=== PATIENT | female | born 1940 | race Caucasian/White ===

== ENCOUNTER 2017-07-08 15:31 | Inpatient (IN) | payer MEDICARE ==
[2017-07-07] MEDS: CHLORHEXIDINE 0.12% (ORAL KIT) 15 ML CUP MT SCH (22:00)
[2017-07-08] VITALS (24 sets, daily range): BP systolic 70–146; BP diastolic 49–92; PULSE 94–132; RESP 15–37; TEMP 96.8; O2SAT 90–100
[~2017-07-08] VITALS: Ht 167.6 cm; Wt 62.4 kg
[2017-07-08] MEDS ORDERED: DILTIAZEM HCL 25 MG/5 ML VIAL IV ONE ×2 (15:45)
[2017-07-08] MEDS ORDERED: SODIUM CHLORIDE 0.9% FLUSH 10 ML FLUSH IV FLUSH PRN (15:45)
[2017-07-08 15:58] LABS: AUTOMATED NEUTROPHIL # 5.6 TH/MM3 (1.8-7.7); BASOPHIL # 0.3 TH/MM3 (0-0.2); EOSINOPHIL % 0.1 % (0.0-4.0); HEMATOCRIT 33.3 % (35.0-46.0); HEMOGLOBIN 10.4 GM/DL (11.6-15.3); LYMPH % 8.3 % (9.0-44.0); LYMPHOCYTE # 0.6 TH/MM3 (1.0-4.8); MEAN CELL VOLUME 100.8 FL (80.0-100.0); MEAN CORPUSCULAR HEMOGLOBIN 31.5 PG (27.0-34.0); MEAN CORPUSCULAR HGB CONC 31.3 % (32.0-36.0); MONO % 1.3 % (0.0-8.0); MONOCYTE # 0.1 TH/MM3 (0-0.9); NEUT % 86.3 % (16.0-70.0); PLATELET COUNT 606 TH/MM3 (150-450); RED BLOOD COUNT 3.31 MIL/MM3 (4.00-5.30); RED CELL DISTRIBUTION WIDTH 19.3 % (11.6-17.2); WHITE BLOOD COUNT 6.6 TH/MM3 (4.0-11.0)
[2017-07-08] MEDS ORDERED: SODIUM CHLOR 0.9% 1000 ML INJ 1,000 ML IV ONE ×4 (16:08→22:15)
[2017-07-08 16:14] LABS: INTERNATIONAL NORMALIZED RATIO 1.1 RATIO; PROTHROMBIN TIME - PATIENT 11.4 SEC (9.8-11.6)
--- NOTE | 2017-07-08 16:16 | RADRPT ---
EXAM DATE/TIME: 07/08/2017 15:55 [facility] COMPARISON: No previous studies available for comparison. INDICATIONS : Short of breath. Syncopal episode. MEDICAL HISTORY : None. SURGICAL HISTORY : None. ENCOUNTER: Initial ACUITY: 1 day PAIN SCORE: Non-responsive. LOCATION: Bilateral chest FINDINGS: Portable AP view of the chest demonstrates a normal-sized cardiac silhouette. Left chest wall Infuse- a-Port is present with distal tip in the superior vena cava. EKG lines overlie the patient. There is a small left pleural based opacity. Densities overlie the left inferior hemithorax and may represent surgical clips. No pneumothorax is identified. There is mild apical pleural thickening at the right l cassy apex. Possible 15 mm nodule is present in the right midlung zone. No pneumothorax is visualized. The bones demonstrate no acute abnormality. CONCLUSION: 1. Small left pleural effusion with associated atelectasis and/or consolidation at the left lung base . 2. Suspected 15 mm mid lung nodule. These findings will be further evaluated on the currently ordered chest CT. Chance Renner MD on July 08, 2017 at 16:08 Board Certified Radiologist. This report was verified electronically.
[2017-07-08] MEDS ORDERED: ROCURONIUM INJ 50 MG/5 ML VIAL ONE (16:24)
[2017-07-08] MEDS ORDERED: POTASSIUM PHOSPHATE INJ 30 MMOL in SODIUM CHLOR 0.9% 250 ML INJ 250 ML IV PRN (16:30)
[2017-07-08] MEDS ORDERED: POTASSIUM PHOSPHATE MONOBASIC 500 MG TAB PO/TUBE PRN (16:30)
[2017-07-08] MEDS ORDERED: POTASSIUM CHLOR 40 MEQ PREMIX 100 ML IV PRN ×2 (16:30)
[2017-07-08] MEDS ORDERED: ROCURONIUM INJ 50 MG/5 ML VIAL IV ONE (16:30)
[2017-07-08] MEDS ORDERED: MAGNESIUM OXIDE 400 MG TAB PO PRN (16:30)
[2017-07-08] MEDS ORDERED: SODIUM PHOSPHATE INJ 30 MMOL in SODIUM CHLOR 0.9% 250 ML INJ 240 ML IV PRN (16:30)
[2017-07-08] MEDS ORDERED: MAGNESIUM SULFATE INJ 4 GM in SODIUM CHLORIDE 0.9% INJ 92 ML IV PRN (16:30)
[2017-07-08] MEDS ORDERED: POTASSIUM PHOSPHATE MONOBASIC 500 MG TAB PO PRN (16:30)
[2017-07-08] MEDS ORDERED: MAGNESIUM SULFATE INJ 2 GM in SODIUM CHLORIDE 0.9% INJ 96 ML IV PRN (16:30)
[2017-07-08] MEDS ORDERED: DEXTROSE 50% IN WATER 50 ML VIAL(D50) IV PUSH PRN (16:30)
[2017-07-08] MEDS ORDERED: PROPOFOL 1000 MG/100 ML INJ 100 ML IV PRN (16:30)
[2017-07-08] MEDS ORDERED: LABETALOL HCL 100 MG/20 ML VIAL IV PUSH PRN (16:30)
[2017-07-08] MEDS ORDERED: hydrALAZINE HCL 20 MG/ML VIAL IV PUSH PRN (16:30)
[2017-07-08] MEDS ORDERED: MIDAZOLAM HCL 5 MG/5 ML VIAL IV PUSH ONE (16:30)
[2017-07-08] MEDS ORDERED: RESP: ALBUTEROL 2.5 MG/IPRATROPIUM 0.5 MG NEB (PRN) INH (16:30)
[2017-07-08] MEDS ORDERED: POTASSIUM CHLOR 20 MEQ PREMIX 100 ML IV PRN ×2 (16:30)
[2017-07-08] MEDS ORDERED: POTASSIUM CHLORIDE 25 MEQ EFFERVESCENT TAB PO PRN (16:30)
[2017-07-08] MEDS ORDERED: ZOFR8TAB4 SL (16:41)
[2017-07-08] MEDS ORDERED: DEXA4TAB PO (16:41)
[2017-07-08] MEDS ORDERED: XARE20TA PO (16:41)
[2017-07-08] MEDS ORDERED: [UNRECOGNIZED DRUG - CODE] IV (16:41)
[2017-07-08] MEDS ORDERED: [UNRECOGNIZED DRUG - CODE] IV (16:41)
--- NOTE | 2017-07-08 16:41 | RADRPT ---
EXAM DATE/TIME: 07/08/2017 16:07 [facility] COMPARISON: CHEST SINGLE AP, July 08, 2017, 15:55. INDICATIONS : Post intubation. MEDICAL HISTORY : None. SURGICAL HISTORY : None. ENCOUNTER: Initial ACUITY: 1 day PAIN SCORE: Non-responsive. LOCATION: Bilateral chest FINDINGS: Portable AP view of the chest demonstrates a normal-sized cardiac silhouette. Left chest wall Infuse- a-Port remains present. Endotracheal tube has been placed and the distal tip measures 5.3 cm from the mook. There is stable blunting of the left costophrenic sulcus with left basilar opacity. There is stable opacity in the right midlung zone which may represent a pulmonary nodule. No pneumothorax is identified. There is asymmetric apical opacity on the right. CONCLUSION: 1. Endotracheal tube in appropriate position with tip measuring 5.3 cm from the mook. 2. Stable small left pleural effusion with associated atelectasis. 3. Suspected 15 mm pulmonary nodule in the right midlung zone. Chance Renner MD on July 08, 2017 at 16:37 Board Certified Radiologist. This report was verified electronically.
[2017-07-08] MEDS ORDERED: SODIUM CHLOR 0.9% 1000 ML INJ 1,000 ML IV SCH (16:43)
[2017-07-08] MEDS ORDERED: LACTULOSE SYRUP 20 GM/30 ML CUP PO PRN (16:45)
[2017-07-08] MEDS ORDERED: fentaNYL DRIP 250 ML IV PRN ×2 (16:45→22:15)
[2017-07-08] MEDS ORDERED: BISACODYL 10 MG SUPP RECTAL PRN (16:45)
[2017-07-08] MEDS ORDERED: ONDANSETRON HCL 4 MG/2 ML VIAL IV PUSH PRN (16:45)
[2017-07-08] MEDS ORDERED: MISCELLANEOUS NURSING INFORMATION XX SCH (16:45)
[2017-07-08] MEDS ORDERED: CHLORHEXIDINE GLUCONATE 2 % 1 PACK (2 CLOTHS) TOP PRN (16:45)
[2017-07-08] MEDS ORDERED: MAGNESIUM HYDROXIDE SUSP 30 ML CUP PO PRN (16:45)
[2017-07-08] MEDS ORDERED: SENNOSIDES 8.6 MG TAB PO PRN (16:45)
[2017-07-08] MEDS ORDERED: IOHEXOL 350 MG/ML 10 ML VIAL (for RAD DIAG) IVCONTRAST ONE (16:54)
--- NOTE | 2017-07-08 17:00 | HHI.HP ---
[facility] Service Critical Care Medicine Primary Care Physician No Primary Care Physician Admission Diagnosis Diagnosis: Chief Complaint: altered mental status Travel History International Travel<30 Days: No Contact w/Intl Traveler <30 Da: No Traveled to Known Affected Are: No History of Present Illness This is a 76yF with a reported history of stage IIIB ovarian cancer who was at her infusion clinic receiving [place]-based chemotherapy when she was found to be acutely altered. per the infusion clinic records, she received 2mg ativan iv prior to therapy. She was brought to the emergency department and was in respiratory distress and emergently intubated. her initial abg demonstrated severe hypercapneic respiratory failure with a pH 6.97, pco2 195. She did come with paperwork suggesting she was a DNR for chest compressions. per the ED physician, he talked with medical decisionmaker and the patient would want intubation. No additional information is available from the patient due to her mental status. ROS unobtainable. 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 these cannot be confirmed with the patient due to her clinical condition. Past Surgical History debulking surgery in 01/2017 as stated in her infusion clinic records. this cannot be confirmed with the patient due to her clinical condition. Reported Medications per infusion clinic records: Carboplatin Inj (Carboplatin) 10 Mg/Ml Inj 5 IV DIRECTED Doxil (Doxorubicin HCl Liposome) 2 Mg/Ml Inj 30 Mg IV DIRECTED Zofran Odt (Ondansetron Odt) 8 Mg Tab 8 Mg SL Q8H PRN Xarelto (Rivaroxaban) 20 Mg Tab 20 Mg PO DAILY Dexamethasone 4 Mg Tab 4 Mg PO DIRECTED Active Ordered Medications See MAR Family History unknown and unobtainable secondary to the clinical condition of the patient. Social History unknown and unobtainable secondary to the clinical condition of the patient Physical Exam Physical Exam gen: elderly frail female, lying in bed, unresponsive, intubated. heent: perrl. mucous membranes moist. normocephalic. atraumatic neck: no jvd. trachea midline. chest: intubated. prvc. equal chest rise. cv: tachycardic rate, irregularly irregular rhythm. afib by tele. abd: soft, nontender, nondistended. no guarding. extr: distal pulses 2+. warm, well perfused. neuro: GCS 3. RASS -5. intubated, unresponsive. Laboratory Laboratory Tests Test 07/08/17 15:32 07/08/17 15:40 White Blood Count 6.6 Red Blood Count 3.31 Hemoglobin 10.4 Hematocrit 33.3 Mean Corpuscular Volume 100.8 Mean Corpuscular Hemoglobin 31.5 Mean Corpuscular Hemoglobin Concent 31.3 Red Cell Distribution Width 19.3 Platelet Count 606 Mean Platelet Volume 8.0 Neutrophils (%) (Auto) 86.3 Lymphocytes (%) (Auto) 8.3 Monocytes (%) (Auto) 1.3 Eosinophils (%) (Auto) 0.1 Basophils (%) (Auto) 4.0 Neutrophils # (Auto) 5.6 Lymphocytes # (Auto) 0.6 Monocytes # (Auto) 0.1 Eosinophils # (Auto) 0.0 Basophils # (Auto) 0.3 CBC Comment DIFF FINAL Differential Comment Prothrombin Time 11.4 Prothromb Time International Ratio 1.1 Activated Partial Thromboplast Time 28.8 Blood Gas Puncture Site RT RADIAL Blood Gas Patient Temperature 98.6 Blood Gas HCO3 38 Blood Gas Base Excess 5.4 Blood Gas Oxygen Saturation 96 Arterial Blood pH 6.92 Arterial Blood Partial Pressure CO2 195 Arterial Blood Partial Pressure O2 359 Arterial Blood Oxygen Content 14.8 Arterial Blood Carboxyhemoglobin 1.2 Arterial Blood Methemoglobin 1.6 Blood Gas Hemoglobin 10.3 Oxygen Delivery Device AMBU Blood Gas Inspired Oxygen 100 Result Diagram: 07/08/17 1532 Imaging Last Impressions Chest X-Ray 07/08/17 1533 Signed Impressions: Service Date/Time: Saturday, July 08, 2017 15:55 - CONCLUSION: 1. Small left pleural effusion with associated atelectasis and/or consolidation at the left lung base. 2. Suspected 15 mm mid lung nodule. These findings will be further evaluated on the currently ordered chest CT. MD Brenda Calhoun VTE Risk Assessment Brenda VTE Risk Assessment: Mod/High Risk (score >= 2) Caprini Risk Assessment Model Point Value = 1 Point Value = 2 Point Value = 3 Point Value = 5 Age 41-60 Minor surgery BMI > 25 kg/m2 Swollen legs Varicose veins or History of unexplained or recurrent spontaneous Oral contraceptives or hormone replacement Sepsis (< 1 month) Serious lung disease, including pneumonia (< 1 month) Abnormal pulmonary function Acute myocardial infarction Congestive heart failure (< 1 month) History of inflammatory bowel disease Medical patient at bed rest Age 61-74 Arthroscopic surgery Major open surgery (> 45 min) Laparoscopic surgery (> 45 min) Malignancy Confined to bed (> 72 hours) Immobilizing plaster cast Central venous access Age >= 75 History of VTE Family history of VTE Factor V Leiden Prothrombin [id number] Lupus anticoagulant Anticardiolipin antibodies Elevated serum homocysteine Heparin-induced thrombocytopenia Other congenital or acquired thrombophilia Stroke (< 1 month) Elective arthroplasty Hip, pelvis, or leg fracture Acute spinal cord injury (< 1 month) Prophylaxis Regimen Total Risk Factor Score Risk Level Prophylaxis Regimen 0-1 Low Early ambulation 2 Moderate Order ONE of the following: *Sequential Compression Device (SCD) *Heparin 5000 units SQ BID 3-4 Higher Order ONE of the following medications: *Heparin 5000 units SQ TID *Enoxaparin/Lovenox 40 mg SQ daily (WT < 150 kg, CrCl > 30 mL/min) *Enoxaparin/Lovenox 30 mg SQ daily (WT < 150 kg, CrCl > 10-29 mL/min) *Enoxaparin/Lovenox 30 mg SQ BID (WT < 150 kg, CrCl > 30 mL/min) AND/OR *Sequential Compression Device (SCD) 5 or more Highest Order ONE of the following medications: *Heparin 5000 units SQ TID (Preferred with Epidurals) *Enoxaparin/Lovenox 40 mg SQ daily (WT < 150 kg, CrCl > 30 mL/min) *Enoxaparin/Lovenox 30 mg SQ daily (WT < 150 kg, CrCl > 10-29 mL/min) *Enoxaparin/Lovenox 30 mg SQ BID (WT < 150 kg, CrCl > 30 mL/min) AND *Sequential Compression Device (SCD) Assessment and Plan Assessment and Plan Assessment: 76yF with history of ovarian cancer with acute hypercarbic and hypoxic respiratory failure. Unclear etiology at this point: could be secondary to over-sedation from benzodiazepines. will f/u tox screen. continue frequent neuro checks. will culture and send flu swab to rule out an infectious etiology , but no clinical history to suspect infection, and I suspect the infusion clinic screened for infection before proceeding with chemotherapy today. will consult medical oncology to follow along. Remains very critically ill with acute hypercarbic respiratory failure. neuro: Acute metabolic encephalopathy - likely secondary to co2 narcosis - frequent neuro checks - propofol, fentanyl for goal RASS -2 Resp: Acute hypercarbic and hypoxic respiratory failure - vent bundle - hob elevated - nebs - repeat abg after intubation - f/u CTA pulmonary angiogram CV: Atrial fibrillation - unclear if new or old. - trend troponins - send BNP - continue home xarelto Renal: - place ward - send bmp - strict i/o's FEN/GI: Acute protein calorie malnutrition- severe - ICU electrolyte protocol - place OG tube and start tube feeds - daily bmp - ns @ 84cc/hr Heme/ID: Stage IIIB ovarian cancer actively receiving chemotherapy - consult oncology - send cultures - hold off on empiric abx given lack of infectious history - daily cbc - send flu swab Endo: - ssi Prophylaxis: - SCDs - pepcid - restart home xarelto Lines: - ED placing cvl for hypotension - ward Dispo: admit to ICU. critically ill. CODE STATUS: DNR/INTUBATION ONLY. Congruent with her written wishes, we will keep her DNR and continue aggressive medical care. Critical care time: 67 minutes, exclusive of separately billable procedures. Jj Acosta MD Jul 08, 2017 17:00
--- NOTE | 2017-07-08 17:03 | RADRPT ---
EXAM DATE/TIME: 07/08/2017 16:30 [facility] COMPARISON: No previous studies available for comparison. INDICATIONS : Unresponsive. RADIATION DOSE: 67.16 CTDIvol (mGy) ; Tabletop CT Head MEDICAL HISTORY : Non-responsive. SURGICAL HISTORY : Non-responsive. ENCOUNTER: Initial ACUITY: 1 day PAIN SCALE: Non-responsive LOCATION: cranial TECHNIQUE: Multiple contiguous axial images were obtained of the head. Using automated exposure control and adj ustment of the mA and/or kV according to patient size, radiation dose was kept as low as reasonably a chievable to obtain optimal diagnostic quality images. DICOM format image data is available electro nically for review and comparison. FINDINGS: CEREBRUM: Central cerebral atrophy is noted. No evidence of midline shift, mass lesion, hemorrhage or acute inf arction. No extra-axial fluid collections are seen. POSTERIOR FOSSA: The cerebellum and brainstem are intact. The 4th ventricle is midline. The cerebellopontine angle i s unremarkable. EXTRACRANIAL: The visualized portion of the orbits is intact. SKULL: The calvaria is intact. No evidence of skull fracture. CONCLUSION: 1. Central cerebral atrophy. 2. No acute infarct, acute hemorrhage, midline shift or extra-axial fluid collections. Carlos Ruiz MD on July 08, 2017 at 16:59 Board Certified Radiologist. This report was verified electronically.
--- NOTE | 2017-07-08 17:16 | RADRPT ---
EXAM DATE/TIME: 07/08/2017 16:35 [facility] COMPARISON: No previous studies available for comparison. INDICATIONS : Unresponsive. IV CONTRAST: 65 cc Omnipaque 350 (iohexol) IV RADIATION DOSE: 10.41 CTDIvol (mGy) MEDICAL HISTORY : Non-responsive. SURGICAL HISTORY : Non-responsive. ENCOUNTER: Initial ACUITY: 1 day PAIN SCALE: Non-responsive LOCATION: chest TECHNIQUE: Volumetric scanning of the chest was performed using a pulmonary embolism protocol MIP images were re constructed. Using automated exposure control and adjustment of the mA and/or kV according to patien t size, radiation dose was kept as low as reasonably achievable to obtain optimal diagnostic quality images. DICOM format image data is available electronically for review and comparison. Follow-up recommendations for detected pulmonary nodules are based at a minimum on nodule size and pa tient risk factors according to Fleischner Society Guidelines. FINDINGS: There is no evidence of pulmonary embolism. The esophagus is dilated throughout its course and disten ded with fluid raising the possibility of achalasia or achalasia-like process. Patchy consolidation i s noted within the left lower lobe consistent with probable pneumonia. Clinical correlation is recomm ended. Small left pleural effusion is also noted. More focal patchy densities are identified within t he superior segment of the right lower lobe with the larger of the 2 measuring approximately 2.9 cm i n size raising the possibility of nodular infiltrate. Underlying mass cannot be ruled out with certai nty on the basis of this examination. Bibasilar bronchiectasis is noted which is worse on the left th an the right. Fibrotic scarring is noted bilaterally. Degenerative changes and scoliosis of the thora cic spine are noted. CONCLUSION: 1. No evidence of pulmonary embolism. 2. Patchy consolidation within left lower lobe consistent with probable pneumonia. Clinical correlati on is recommended. 3. Small left pleural effusion. 4. More focal patchy densities within the superior segment of the right lower lobe raising the possib ility of nodular infiltrates. Underlying mass lesion cannot be ruled out with certainty on the basis of this examination. 5. Bibasilar bronchiectasis which is worse on the left than the right. 6. Diffuse fluid-filled dilated esophagus suggesting the possibility of achalasia or achalasia-like p rocess. Carlos Ruiz MD on July 08, 2017 at 17:04 Board Certified Radiologist. This report was verified electronically.
[2017-07-08] MEDS ORDERED: VANCOMYCIN INJ 1,000 MG in SODIUM CHLOR 0.9% 250 ML INJ 250 ML IV ONE (17:30)
[2017-07-08] MEDS ORDERED: CEFEPIME INJ 2,000 MG in SODIUM CHLORIDE 0.9% INJ 100 ML IV ONE (17:30)
[2017-07-08 17:36] LABS: CHLORIDE 103 MEQ/L (98-107); SODIUM (NA) 139 MEQ/L (136-145)
[2017-07-08 17:52] LABS: ALBUMIN 1.8 GM/DL (3.4-5.0); ALKALINE PHOSPHATASE 344 U/L (45-117); ALT (GPT) 36 U/L (10-53); AST (GOT) 40 U/L (15-37); BICARBONATE 30.2 MEQ/L (21.0-32.0); BLOOD UREA NITROGEN 18 MG/DL (7-18); CALCIUM 7.1 MG/DL (8.5-10.1); CALCIUM-PROTEIN CORRECTED 8.1 MG/DL (8.5-10.1); CREATININE 0.67 MG/DL (0.50-1.00); GLOMERULAR FILTRATION RATE 86 ML/MIN (>89); GLUCOSE,RANDOM 203 MG/DL (74-106); TOTAL BILIRUBIN ADULT 0.2 MG/DL (0.2-1.0); TOTAL PROTEIN 5.3 GM/DL (6.4-8.2); TROPONIN I 0.03 NG/ML (0.02-0.05)
--- NOTE | 2017-07-08 18:03 | RADRPT ---
EXAM DATE/TIME: 07/08/2017 17:18 [facility] COMPARISON: CHEST SINGLE AP, July 08, 2017, 16:07. INDICATIONS : Post central line placement. MEDICAL HISTORY : None. SURGICAL HISTORY : None. ENCOUNTER: Subsequent ACUITY: 1 day PAIN SCORE: Non-responsive. LOCATION: Bilateral chest FINDINGS: Stable ETT and left subclavian central line. Interval placement of left IJ central line with tip in t he central SVC. No significant pneumothorax. Persistent small left pleural effusion and associated ai rspace disease in the left lung base. There patchy airspace disease in the right midlung zone which a ppear less nodular than earlier exam. Cardiomediastinal contours are stable. Remainder of the exam is unchanged. CONCLUSION: 1. Left IJ central line in the proximal SVC without pneumothorax. 2. Remainder the exam is unchanged. Adelfo Horton MD on July 08, 2017 at 17:59 Board Certified Radiologist. This report was verified electronically.
--- NOTE | 2017-07-08 18:09 | PD ---
HPI Chief Complaint: Respiratory Distress Time Seen by Provider: 15:33 Travel History International Travel<30 days: No Contact w/Intl Traveler<30days: No Traveled to known affect area: No History of Present Illness HPI 76-year-old female arrives unresponsive by EMS. The patient was picked up from [facility], a chemotherapy infusion suite, where she had been found unresponsive. Evidently she received 0.25 mg Ativan prior to unresponsive state. Pulse reported to be in the 130s. Blood pressure reported to be 150 systolic. The history is limited upon arrival due to that provided by EMS secondary to patient's altered mental status the GCS of 6. Patient is a history of ovarian cancer as well as pulmonary embolism. She takes Xarelto. Today she received multiple chemotherapeutic agents in addition to Decadron Tylenol normal saline and Ativan. The patient carries a MOLST, medical orders for life sustaining treatment. I discussed the need to intubate with the patient's daughter who agreed to proceed which in this case would likely be lifesaving due to the PCO2 195. 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) High Cholesterol: Yes Chemotherapy: Yes Gastrointestinal Disorders: Yes (SCHATZKI'S RING/ESOPHAGEAL DILITATIONS) GERD: Yes Hypertension: Yes Immunizations Current: Yes Tubal Ligation: Yes Past Surgical History Abdominal Surgery: Yes (SPLEENECTOMY/COLON RESECTION) Thoracic Surgery: Yes (LEFT SIDED THORCENTESIS/CHEST TUBE) Tonsillectomy: Yes Other Surgery: Yes (TOE SURGERY) Social History Alcohol Use: No Tobacco Use: No (FORMER) Substance Use: No Allergies-Medications (Allergen,Severity, Reaction): Coded Allergies: No Known Allergies (Unverified , 07/08/17) Reported Meds & Prescriptions Reported Meds & Active Scripts Active Reported Carboplatin Inj (Carboplatin) 10 Mg/Ml Inj 5 IV DIRECTED Doxil (Doxorubicin HCl Liposome) 2 Mg/Ml Inj 30 Mg IV DIRECTED Zofran Odt (Ondansetron Odt) 8 Mg Tab 8 Mg SL Q8H PRN Xarelto (Rivaroxaban) 20 Mg Tab 20 Mg PO DAILY Dexamethasone 4 Mg Tab 4 Mg PO DIRECTED Review of Systems ROS Limitations: Clinical Condition Physical Exam Narrative GENERAL: 76-year-old female well-nourished well-developed mild distress Heart rate approximately 140, blood pressure approximately 130/80, respiratory rate about 12 SKIN: Warm and dry. HEAD: Atraumatic. Normocephalic. EYES: Pupils are equal round and reactive to light. ENT: No nasal bleeding or discharge. Mucous membranes pink and moist. NECK: Trachea midline. No JVD. CARDIOVASCULAR: Regular rate and rhythm. Irregular. Tachycardia. RESPIRATORY: Breath sounds are present bilaterally although diminished bilaterally. GASTROINTESTINAL: Soft. No distention. MUSCULOSKELETAL: Extremities without clubbing, cyanosis, or edema. No obvious deformities. NEUROLOGICAL: GCS of 6 PSYCHIATRIC: Unable to assess Data Data Orders Orders Electrocardiogram (07/08/17 15:33) Complete Blood Count With Diff (07/08/17:) Comprehensive Metabolic Panel (07/08/17:) Creatine Kinase (Cpk) (07/08/17:33) Prothrombin Time / Inr (Pt) (07/08/17 15:33) Act Partial Throm Time (Ptt) (07/08/17 15:33) Troponin I (07/08/17:) Thyroid Stimulating Hormone (07/08/17 15:33) Urinalysis - C+S If Indicated (07/08/17 15:33) Lactic Acid Sepsis Protocol (07/08/17 15:33) Arterial Blood Gas (Abg) (07/08/17 15:33) Chest, Single Ap (07/08/17 15:33) Ct Brain W/O Iv Contrast(Rout) (07/08/17 15:33) Blood Glucose (07/08/17 15:33) Ecg Monitoring (07/08/17:33) Iv Access Insert/Monitor (07/08/17:33) Cath For Specimen (07/08/17:33) Oximetry (07/08/17 15:33) Sodium Chloride 0.9% Flush (Ns Flush) (07/08/17 15:45) Drug Screen, Random Urine (07/08/17 15:33) Alcohol (Ethanol) (07/08/17 15:33) Tylenol (Acetaminophen) (07/08/17 15:33) Salicylates (Aspirin) (07/08/17 15:33) Diltiazem Inj (Cardizem Inj) (07/08/17 15:45) Diltiazem Inj (Cardizem Inj) (07/08/17 15:45) Ct Pulmonary Angiogram (07/08/17 15:45) Chest, Single Ap (07/08/17 16:08) Ng Gastric Tube Insert/Monitor (07/08/17 16:08) Urinary Catheter Insert/Apply (07/08/17 16:08) Sodium Chlor 0.9% 1000 Ml Inj (Ns 1000 M (07/08/17 16:08) Restraints Non-Violent YOLANDA.Q3H (07/08/17 16:08) Cbc No Diff, Includes Plts (07/09/17 05:00) Cbc No Diff, Includes Plts (07/10/17 05:00) Cbc No Diff, Includes Plts (07/11/17 05:00) Cbc No Diff, Includes Plts (07/12/17 05:00) Cbc No Diff, Includes Plts (07/13/17 05:00) Cbc No Diff, Includes Plts (07/14/17 05:00) Cbc No Diff, Includes Plts (07/15/17 05:00) Basic Metabolic Panel (Bmp) (07/09/17 05:00) Basic Metabolic Panel (Bmp) (07/10/17 05:00) Basic Metabolic Panel (Bmp) (07/11/17 05:00) Basic Metabolic Panel (Bmp) (07/12/17 05:00) Basic Metabolic Panel (Bmp) (07/13/17 05:00) Basic Metabolic Panel (Bmp) (07/14/17 05:00) Basic Metabolic Panel (Bmp) (07/15/17 05:00) Restraints Non-Violent YOLANDA.Q3H (07/08/17 16:16) Propofol 1000 Mg/100 Ml Inj (Diprivan 10 (07/08/17 16:30) ^ Infusion (07/08/17 16:16) Labetalol Inj (Trandate Inj) (07/08/17 16:30) Hydralazine Inj (Apresoline Inj) (07/08/17 16:30) ^ Medication Admin Instruction (07/08/17 16:16) Notify Dr: Other (07/08/17 16:16) Potassium Chlor 40 Meq Premix (Kcl 40 Me (07/08/17 16:30) Potassium Chlor 20 Meq Premix (Kcl 20 Me (07/08/17 16:30) Potassium Chloride Eff (K-Lyte Cl Eff) (07/08/17 16:30) Potassium Chlor 40 Meq Premix (Kcl 40 Me (07/08/17 16:30) Potassium Chlor 20 Meq Premix (Kcl 20 Me (07/08/17 16:30) Magnesium Sulfate Inj (Magnesium Sulfate (07/08/17 16:30) Magnesium Oxide (Mag-Ox) (07/08/17 16:30) Magnesium Sulfate Inj (Magnesium Sulfate (07/08/17 16:30) Potassium Phosphate (K-Phos) (07/08/17 16:30) Sodium Phosphate Inj (Sodium Phosphate I (07/08/17 16:30) Potassium Phosphate (K-Phos) (07/08/17 16:30) Potassium Phosphate Inj (Potassium Phosp (07/08/17 16:30) Chlorhexidine 0.12% Liq (Peridex 0.12% L (07/08/17 20:00) Resp Ventilation- Volume (07/08/17 ) Ventilator Weaning Readiness YOLANDA.DAILY@0800 (07/08/17 16:16) Elevate Head Of Bed (07/08/17 16:16) Inpatient Certification (07/08/17 16:16) Bedside Glucose YOLANDA.Q6H (07/08/17 16:16) Blood Glucose Goal (Criteria) (07/08/17 16:16) Hypoglycemia 51 - 69 Mg/Dl (07/08/17 16:16) Hypoglycemia 50 Mg/Dl Or < (07/08/17 16:16) Notify Dr: Other (07/08/17 16:16) Dextrose 50% In John (Vial) Inj (D50w (Vi (07/08/17 16:30) Insulin Human Reg Supp Scale (Novolin R (07/08/17 18:00) Urinary Catheter Management YOLANDA.Q1H (07/08/17 16:16) Albuterol-Ipratropium Neb (Duoneb Neb) (07/08/17 22:00) Albuterol-Ipratropium Neb (Duoneb Neb) (07/08/17 16:30) Neuro Checks YOLANDA.Q1H (07/08/17 16:16) Blood Culture (07/08/17 16:16) Sputum Culture And Gram Stain (07/08/17 16:16) Specimen To Be Collected PRN (07/08/17 16:16) Consult Medical Oncology (07/08/17 ) Rocuronium Inj (Zemuron Inj) (07/08/17 16:30) Midazolam Inj (Versed Inj) (07/08/17 16:30) Rocuronium Inj (Zemuron Inj) (07/08/17 16:24) Fentanyl Drip (Fentanyl Drip) (07/08/17 16:45) Iohexol 350 Inj (Omnipaque 350 Inj) (07/08/17 16:54) Code Status (07/08/17 16:43) Vital Signs (Adult) YOLANDA.Q1H (07/08/17 16:43) Activity Bed Rest (07/08/17 16:43) Elevate Head Of Bed (07/08/17 16:43) Intake + Output Q1H (07/08/17 16:43) ^ Orogastric Tube (07/08/17 16:43) Sodium Chlor 0.9% 1000 Ml Inj (Ns 1000 M (07/08/17 16:43) Famotidine Inj (Pepcid Inj) (07/08/17 21:00) Ondansetron Inj (Zofran Inj) (07/08/17 16:45) Miter Cutter / Telemetry YOLANDA.Q8H (07/08/17 16:43) Scd Bilateral/Knee High YOLANDA.BID (07/08/17 16:43) ^ Initiate Protocol (07/08/17 16:43) Instruction (07/08/17 16:43) Misc Nursing Information (07/08/17 16:45) Chlorhexidine 2% Cloth (Chlorhexidine 2% (07/09/17 04:00) Chlorhexidine 2% Cloth (Chlorhexidine 2% (07/08/17 16:45) Mrsa Pcr Surveillance (07/08/17 16:43) Docusate Sodium-Senna (Marisol-Colace) (07/08/17 21:00) Magnesium Hydroxide Liq (Milk Of Magnesi (07/08/17 16:45) Sennosides (Senokot) (07/08/17 16:45) Bisacodyl Supp (Dulcolax Supp) (07/08/17 16:45) Lactulose Liq (Lactulose Liq) (07/08/17 16:45) Rivaroxaban (Xarelto) (07/09/17 09:00) Admit Order (Ed Use Only) (07/08/17 ) Miter Cutter / Telemetry YOLANDA.Q8H (07/08/17 17:11) Diet Npo (07/08/17 Dinner) Activity Bed Rest (07/08/17 17:11) Notify Dr: Other (07/08/17 17:11) (Hub Use Only)Inp Phy Cons/Ref (07/08/17 ) Chest, Single Ap (07/08/17 ) Sodium Chlor 0.9% 1000 Ml Inj (Ns 1000 M (07/08/17 17:30) Vancomycin Inj (Vancomycin Inj) (07/08/17 17:30) Cefepime Inj (Maxipime Inj) (07/08/17 17:30) Labs Laboratory Tests Test 07/08/17 15:32 07/08/17 15:40 07/08/17 17:14 White Blood Count 6.6 TH/MM3 Red Blood Count 3.31 MIL/MM3 Hemoglobin 10.4 GM/DL Hematocrit 33.3 % Mean Corpuscular Volume 100.8 FL Mean Corpuscular Hemoglobin 31.5 PG Mean Corpuscular Hemoglobin Concent 31.3 % Red Cell Distribution Width 19.3 % Platelet Count 606 TH/MM3 Mean Platelet Volume 8.0 FL Neutrophils (%) (Auto) 86.3 % Lymphocytes (%) (Auto) 8.3 % Monocytes (%) (Auto) 1.3 % Eosinophils (%) (Auto) 0.1 % Basophils (%) (Auto) 4.0 % Neutrophils # (Auto) 5.6 TH/MM3 Lymphocytes # (Auto) 0.6 TH/MM3 Monocytes # (Auto) 0.1 TH/MM3 Eosinophils # (Auto) 0.0 TH/MM3 Basophils # (Auto) 0.3 TH/MM3 CBC Comment DIFF FINAL Differential Comment Prothrombin Time 11.4 SEC Prothromb Time International Ratio 1.1 RATIO Activated Partial Thromboplast Time 28.8 SEC Blood Gas Puncture Site RT RADIAL Blood Gas Patient Temperature 98.6 Blood Gas HCO3 38 mmol/L Blood Gas Base Excess 5.4 mmol/L Blood Gas Oxygen Saturation 96 % Arterial Blood pH 6.92 Arterial Blood Partial Pressure CO2 195 mmHG Arterial Blood Partial Pressure O2 359 mmHG Arterial Blood Oxygen Content 14.8 Vol % Arterial Blood Carboxyhemoglobin 1.2 % Arterial Blood Methemoglobin 1.6 % Blood Gas Hemoglobin 10.3 G/DL Oxygen Delivery Device AMBU Blood Gas Inspired Oxygen 100 % Blood Urea Nitrogen 18 MG/DL Creatinine 0.67 MG/DL Random Glucose 203 MG/DL Total Protein 5.3 GM/DL Albumin 1.8 GM/DL Calcium Level 7.1 MG/DL Alkaline Phosphatase 344 U/L Aspartate Amino Transf (AST/SGOT) 40 U/L Alanine Aminotransferase (ALT/SGPT) 36 U/L Total Bilirubin 0.2 MG/DL Sodium Level 139 MEQ/L Potassium Level 3.8 MEQ/L Chloride Level 103 MEQ/L Carbon Dioxide Level 30.2 MEQ/L Anion Gap 6 MEQ/L Estimat Glomerular Filtration Rate 86 ML/MIN Lactic Acid Level 1.6 mmol/L Protein Corrected Calcium 8.1 MG/DL Total Creatine Kinase 29 U/L Troponin I 0.03 NG/ML Ethyl Alcohol Level LESS THAN 3 MG/DL MDM Medical Decision Making Medical Screen Exam Complete: Yes Emergency Medical Condition: Yes Differential Diagnosis Benzodiazepine overdose, cardiopulmonary arrest, hypercarbic respiratory arrest Narrative Course CBC & BMP Diagram 07/08/17 15:32 07/08/17 17:14 Total Protein 5.3 L, Albumin 1.8 L, Calcium Level 7.1 *L, Alkaline Phosphatase 344 H, Aspartate Amino Transf (AST/SGOT) 40 H, Alanine Aminotransferase (ALT/ SGPT) 36, Total Bilirubin 0.2 Troponin is 0.03 Lactic acid 1.6 Alcohol is less than 3 ABG 6.92/195/38 pO2 359 FIO2 100% Last Impressions Chest X-Ray 07/08/17 1608 Signed Impressions: Service Date/Time: Saturday, July 08, 2017 16:07 - CONCLUSION: 1. Endotracheal tube in appropriate position with tip measuring 5.3 cm from the mook. 2. Stable small left pleural effusion with associated atelectasis. 3. Suspected 15 mm pulmonary nodule in the right midlung zone. Chance Renner MD CT Angiography 07/08/17 154 Signed Impressions: Service Date/Time: Saturday, July 08, 2017 16:35 - CONCLUSION: 1. No evidence of pulmonary embolism. 2. Patchy consolidation within left lower lobe consistent with probable pneumonia. Clinical correlation is recommended. 3. Small left pleural effusion. 4. More focal patchy densities within the superior segment of the right lower lobe raising the possibility of nodular infiltrates. Underlying mass lesion cannot be ruled out with certainty on the basis of this examination. 5. Bibasilar bronchiectasis which is worse on the left than the right. 6. Diffuse fluid-filled dilated esophagus suggesting the possibility of achalasia or achalasia-like process. Carlos Ruiz MD Head CT 07/08/17 1533 Signed Impressions: Service Date/Time: Saturday, July 08, 2017 16:30 - CONCLUSION: 1. Central cerebral atrophy. 2. No acute infarct, acute hemorrhage, midline shift or extra-axial fluid collections. Carlos Ruiz MD Chest X-Ray 07/08/17 1533 Signed Impressions: Service Date/Time: Saturday, July 08, 2017 15:55 - CONCLUSION: 1. Small left pleural effusion with associated atelectasis and/or consolidation at the left lung base. 2. Suspected 15 mm mid lung nodule. These findings will be further evaluated on the currently ordered chest CT. Chance Renner MD Etiology of altered mental status unclear however it might be related to the Ativan infusion. Chest CT reveals possible pneumonia. Cefepime and vancomycin started. The patient was intubated without RSI medications. Admission to the intensive care unit under Dr. Murillo. Central line started by me. Patient intubated by me. Critical Care Narrative Aggregate critical care time was 55 minutes. Time to perform other separately billable procedures was not included in the critical care time. My time did not include minutes spent treating any other patients simultaneously or on activities that did not directly contribute to the patient's treatment. The services I provided to this patient were to treat and/or prevent clinically significant deterioration that could result in: Cardiac arrest I provided critical care services requiring my management, as noted below: Chart data review, documentation time, medication orders and management, vital sign assessments/reviewing monitor data, ordering and reviewing lab tests, ordering and interpreting/reviewing x-rays and diagnostic studies, care of the patient and discussion of the patient with the admitting physicians. Procedures Procedure Narrative After the risks and benefits were discussed the following procedure was performed: INTUBATION: The patient was put in optimal position for the procedure. The patient was intubated with a 7.5 cuffed endotracheal tube. Tube placement was confirmed by visualization of the tube and balloon passing through the cords, capnometry and subsequent chest x-ray. Breath sounds were equal and well aerated bilaterally postintubation. No breath sounds over stomach. Patient tolerated procedure well. CENTRAL VENOUS LINE: The site was prepped with Betadine and sterilely draped. It was infiltrated with 1% lidocaine plain. The deep vein was cannulated using normal Seldinger technique. A 3 lumen central line was placed in the left internal jugular site and secured with simple interrupted suture. The site was sterilely dressed. The patient tolerated the procedure well. Ultrasound guidance employed. Diagnosis Primary Impression: Respiratory arrest Admitting Information Admitting Physician Requests: Ilya Roland MD Jul 08, 2017 18:09
[2017-07-08 18:12] LABS: BILIRUBIN, URINE NEG (NEG); BLOOD, URINE MOD (NEG); GLUCOSE,URINE NEG (NEG); KETONE, URINE NEG (NEG); NITRITE,URINE NEG (NEG); PH, URINE 5.5 (5.0-8.5); URINE COLOR YELLOW (YELLW/STRAW); URINE LEUKOCYTE ESTERASE NEG (NEG)
[2017-07-08 18:35] LABS: WBC, URINE 0-2 /hpf (0-5)
[2017-07-08 18:36] LABS: BACTERIA, URINE RARE /hpf; SQUAMOUS EPITHELIAL CELL URINE 0-2 /hpf (0-5)
[2017-07-08 18:55] LABS: ACETAMINOPHEN 6.4 MCG/ML (10.0-30.0)
[2017-07-08] MEDS ORDERED: ASPIRIN 325 MG TAB PO ONE (20:30)
[2017-07-08] MEDS ORDERED: LABETALOL HCL 100 MG/20 ML VIAL IV PUSH ONE (20:30)
[2017-07-08] MEDS ORDERED: FAMOTIDINE 20 MG/2 ML VIAL IV PUSH SCH (21:00)
[2017-07-08] MEDS: DOCUSATE SODIUM 50 MG/SENNA 8.6 MG TAB PO SCH (21:00)
[2017-07-08] MEDS: RESP: ALBUTEROL 2.5 MG/IPRATROPIUM 0.5 MG NEB (SCH) INH (21:04)
[2017-07-08] MEDS ORDERED: MIDAZOLAM 100 MG/100 ML INJ 100 ML IV PRN (22:15)
[2017-07-09] VITALS (56 sets, daily range): BP systolic 78–119; BP diastolic 44–85; PULSE 90–122; RESP 11–24; TEMP 97.3–98.7; O2SAT 90–100
[2017-07-09] MEDS: CHLORHEXIDINE GLUCONATE 2 % 1 PACK (2 CLOTHS) TOP SCH (04:00)
[2017-07-09] MEDS: RESP: ALBUTEROL 2.5 MG/IPRATROPIUM 0.5 MG NEB (SCH) INH ×4 (04:02→21:17)
[2017-07-09 05:10] LABS: HEMOGLOBIN 9.4 GM/DL (11.6-15.3); MEAN CELL VOLUME 98.3 FL (80.0-100.0); MEAN CORPUSCULAR HEMOGLOBIN 31.8 PG (27.0-34.0); MEAN CORPUSCULAR HGB CONC 32.3 % (32.0-36.0); MEAN PLATELET VOLUME 7.1 FL (7.0-11.0); PLATELET COUNT 592 TH/MM3 (150-450); RED BLOOD COUNT 2.95 MIL/MM3 (4.00-5.30); WHITE BLOOD COUNT 8.1 TH/MM3 (4.0-11.0)
[2017-07-09] MEDS: INSULIN NovoLIN REGULAR SUPPLEMENTAL SCALE SQ SCH ×4 (05:24→18:00)
[2017-07-09 05:25] LABS: CALCIUM 7.8 MG/DL (8.5-10.1)
[2017-07-09 05:26] LABS: BICARBONATE 28.5 MEQ/L (21.0-32.0)
[2017-07-09 06:13] LABS: CREATININE 0.53 MG/DL (0.50-1.00)
--- NOTE | 2017-07-09 06:36 | HHI.CCPN ---
Subjective Remarks/Hospital Course Hospital Course: This is a 76yF with a reported history of stage IIIB ovarian cancer who was at her infusion clinic receiving [place] [employer] [place]-based chemotherapy when she was found to be acutely altered. per the infusion clinic records, she received 2mg ativan iv prior to therapy. She was brought to the emergency department and was in respiratory distress and emergently intubated. her initial abg demonstrated severe hypercapneic respiratory failure with a pH 6.97, pco2 195. She did come with paperwork suggesting she was a DNR for chest compressions. per the ED physician, he talked with medical decisionmaker and the patient would want intubation. No additional information is available from the patient due to her mental status. ROS unobtainable. Subjective: 07/08: improved. blood pressure low despite 2L ivf resuscitation. more awake, following commands. ROS negative. denies pain. Objective Vital Signs Date Time Temp Pulse Resp B/P (MAP) Pulse Ox O2 Delivery O2 Flow Rate FiO2 07/09/17 06:15 114 16 91/60 (70) 100 07/09/17 04:40 40 07/09/17 04:00 97.5 07/08/17 21:08 Ventilator Intake and Output 07/09/17 07/09/17 07/10/17 08:00 16:00 00:00 Intake Total 3424.6 ml Output Total 650 ml Balance 2774.6 ml Result Diagram: 07/09/17 0435 07/09/17 0435 Other Results Laboratory Tests Test 07/08/17 15:40 07/08/17 19:07 07/09/17 06:15 Blood Gas Puncture Site RT RADIAL RT RADIAL RT BRACHIAL Blood Gas Patient Temperature 98.6 98.6 37.0 Blood Gas HCO3 38 mmol/L (22-26) 28 mmol/L (22-26) 28 mmol/L (22-26) Blood Gas Base Excess 5.4 mmol/L (-2-2) 4.4 mmol/L (-2-2) 4.5 mmol/L (-2-2) Blood Gas Oxygen Saturation 96 % (90-100) 98 % (90-100) 97 % (90-100) Arterial Blood pH 6.92 (7.380-7.420) 7.46 (7.380-7.420) 7.45 (7.380-7.420) Arterial Blood Partial Pressure CO2 195 mmHG (38-42) 41 mmHG (38-42) 42 mmHg (38-42) Arterial Blood Partial Pressure O2 359 mmHG (61-120) 538 mmHG (61-120) 155 mmHg (61-120) Arterial Blood Oxygen Content 14.8 Vol % (12.0-20.0) 14.5 Vol % (12.0-20.0) 12.9 Vol % (12.0-20.0) Arterial Blood Carboxyhemoglobin 1.2 % (0-4) 0.5 % (0-4) 1.5 % (0-4) Arterial Blood Methemoglobin 1.6 % (0-2) 0.9 % (0-2) 1.0 % (0-2) Blood Gas Hemoglobin 10.3 G/DL (12.0-16.0) 9.5 G/DL (12.0-16.0) 9.2 G/DL (12.0-16.0) Oxygen Delivery Device AMBU VENT VENTILATOR Blood Gas Inspired Oxygen 100 % 100 % 40 % Blood Gas Ventilator Setting AC16/VT500/PEEP+5 AC16/500/PEEP5 Imaging Last Impressions Chest X-Ray 07/08/17 1533 Signed Impressions: Service Date/Time: Saturday, July 08, 2017 15:55 - CONCLUSION: 1. Small left pleural effusion with associated atelectasis and/or consolidation at the left lung base. 2. Suspected 15 mm mid lung nodule. These findings will be further evaluated on the currently ordered chest CT. Chance Renner MD Objective Remarks gen: elderly frail female, lying in bed, follows commands. remains intubated. heent: perrl. mucous membranes moist. normocephalic. atraumatic neck: no jvd. trachea midline. chest: intubated. prvc. equal chest rise. cv: tachycardic rate, irregularly irregular rhythm. afib by tele. abd: soft, nontender, nondistended. no guarding. extr: distal pulses 2+. warm, well perfused. neuro: RASS -2. follows commands. moves all extremities. no focal deficits. A/P Assessment and Plan Assessment: 76yF with history of ovarian cancer with acute hypercarbic and hypoxic respiratory failure. clinically improving: will pursue SBT and wean to extubate today. avoid long-acting sedatives. neuro: Acute metabolic encephalopathy - likely secondary to co2 narcosis - frequent neuro checks - propofol, fentanyl for goal RASS -2 - sedation vacation - avoid long-acting sedatives. Resp: Acute hypercarbic and hypoxic respiratory failure- improving. - vent bundle - hob elevated - nebs - SBT today. wean to extubate. CV: Atrial fibrillation - unclear if new or old. - continue home xarelto - given borderline hypotension, will not rate control at this time. Renal: - continue ward for now. - strict i/o's FEN/GI: Acute protein calorie malnutrition- severe - ICU electrolyte protocol - hold tube feeds for SBT. - daily bmp - ns @ 84cc/hr Heme/ID: Stage IIIB ovarian cancer actively receiving chemotherapy - consult oncology - send cultures - hold off on empiric abx given lack of infectious history - daily cbc - send flu swab Endo: - ssi Prophylaxis: - SCDs - pepcid - home xarelto Lines: - 10 CVL by ED. - ward Dispo: admit to ICU. critically ill. CODE STATUS: DNR/INTUBATION ONLY. Congruent with her written wishes, we will keep her DNR and continue aggressive medical care. Jj Acosta MD Jul 09, 2017 06:36
[2017-07-09] MEDS: DOCUSATE SODIUM 50 MG/SENNA 8.6 MG TAB PO SCH ×2 (09:25→19:57)
[2017-07-09] MEDS: RIVAROXABAN 20 MG TAB PO SCH (09:25)
[2017-07-09] MEDS: CHLORHEXIDINE 0.12% (ORAL KIT) 15 ML CUP MT SCH ×2 (09:26→19:57)
[2017-07-09] MEDS: DEXAMETHASONE 4 MG TAB PO SCH ×2 (10:32→19:57)
[2017-07-09] MEDS ORDERED: ALBUMIN 5% INJ 500 ML IV ONE (12:00)
--- NOTE | 2017-07-09 17:13 | HHI.HCPN ---
Spoke with pt's daughter Sandie and Yari today. Plan to have family meeting at 9 AM tomorrow. Sean Mackay MD Jul 09, 2017 17:13
--- NOTE | 2017-07-09 21:28 | EKG ---
Date Performed: 07/08/2017 Time Performed: 19:35:09 PTAGE: 76 years EKG: ATRIAL FIBRILLATION WITH RAPID VENTRICULAR RESPONSE ST ELEVATION, CONSIDER INFERIOR AND LA TERAL INJURY ACUTE ND PREVIOUS TRACING : 07/08/2017 15.37 Compared to previous tracing, ST ABNORMALITIES ARE N EW DOCTOR: Cody Valerio Interpretating Date/Time 07/09/2017 21:28:02
--- NOTE | 2017-07-09 21:34 | EKG ---
Date Performed: 07/08/2017 Time Performed: 15:37:56 PTAGE: 76 years EKG: ATRIAL FIBRILLATION WITH RAPID VENTRICULAR RESPONSE NONSPECIFIC ST & T-WAVE ABNORMALITY ABN ORMAL RHYTHM ECG INTERPRETATION BASED ON A DEFAULT AGE OF 40 YEARS NO PREVIOUS TRACING DOCTOR: Cody Valerio Interpretating Date/Time 07/09/2017 21:33:11
[2017-07-09] MEDS ORDERED: SODIUM CHLOR 0.9% 1000 ML INJ 1,000 ML IV ONE (23:45)
[2017-07-10] VITALS (18 sets, daily range): BP systolic 93–110; BP diastolic 47–58; PULSE 98–108; RESP 15–24; TEMP 97.8–98.2; O2SAT 94–99
[2017-07-10] MEDS ORDERED: ALBUMIN 5% INJ 500 ML IV ONE
[2017-07-10] MEDS: RESP: ALBUTEROL 2.5 MG/IPRATROPIUM 0.5 MG NEB (SCH) INH ×3 (03:16→14:34)
[2017-07-10] MEDS: CHLORHEXIDINE GLUCONATE 2 % 1 PACK (2 CLOTHS) TOP SCH (04:00)
[2017-07-10] MEDS: INSULIN NovoLIN REGULAR SUPPLEMENTAL SCALE SQ SCH ×3 (04:47→11:45)
[2017-07-10 04:58] LABS: HEMATOCRIT 26.9 % (35.0-46.0); HEMOGLOBIN 8.4 GM/DL (11.6-15.3); MEAN CORPUSCULAR HEMOGLOBIN 31.2 PG (27.0-34.0); MEAN CORPUSCULAR HGB CONC 31.2 % (32.0-36.0); MEAN PLATELET VOLUME 7.9 FL (7.0-11.0); PLATELET COUNT 515 TH/MM3 (150-450); RED BLOOD COUNT 2.69 MIL/MM3 (4.00-5.30); WHITE BLOOD COUNT 10.4 TH/MM3 (4.0-11.0)
[2017-07-10 05:11] LABS: CALCIUM 7.9 MG/DL (8.5-10.1)
[2017-07-10 05:12] LABS: BICARBONATE 30.4 MEQ/L (21.0-32.0)
[2017-07-10 05:16] LABS: CREATININE 0.79 MG/DL (0.50-1.00)
[2017-07-10] MEDS ORDERED: LACTATED RINGER'S 1000 ML INJ 1,000 ML IV SCH (06:15)
[2017-07-10] MEDS: CHLORHEXIDINE 0.12% (ORAL KIT) 15 ML CUP MT SCH (08:00)
--- NOTE | 2017-07-10 08:39 | MB ---
cc: Ki Hassan MD DATE: 07/09/2017 REASON FOR CONSULTATION: The patient with recurrent ovarian cancer,who was admitted to the hospital with dyspnea and altered mental status. HISTORY OF PRESENT ILLNESS: This is a 76-year-old female who has recurrent bulky ovarian cancer. She was diagnosed with ovarian cancer approximately 2 years ago. At that time, she was initiated on carboplatin and Taxol and received neoadjuvant treatment, followed by debulking surgery. She then had additional rounds of chemotherapy and achieved remission. According to her family, approximately 4-5 months ago, she had a disease relapse and has been initiated on carboplatin-based therapy. She spends her time between [place] and [place]. However, she has also seen physicians at [facility]. The patient was receiving chemotherapy at the oncology clinic, at Dr. Davalos's office. She was given Ativan for anxiety, however, she became acutely dyspneic and had altered mental status. She was brought to the emergency room in respiratory distress and was emergently intubated. She was found to be severely hypercapnic, with acidemia, pH of 6.97. Subsequently, she was extubated, but then became hypoxic again. She was on BiPAP for several hours. Currently, she is off of BiPAP and is currently on nasal cannula. On admission, she had a CT angiogram, which did not reveal any evidence of pulmonary embolism. There was consolidation in the left lower lobe, consistent with pneumonia. There was also a left-sided pleural effusion. There were focal patchy infiltrates in the right lower lobe. It was difficult to ascertain a mass. She had a dilated esophagus, which was concerning for achalasia. The patient also had a CT of the head on admission, which showed central cerebral atrophy, but no evidence of acute infarct, hemorrhage or midline shift. The patient has a history of atrial fibrillation and she is currently on Xarelto. She has a Estrada catheter in place. The patient is currently awake and alert and she is having a conversation. She is answering questions appropriately. She is sitting up in the bed. Multiple family members are present. REVIEW OF SYSTEMS: A comprehensive review of system was completed which is negative except as described in the HPI. PAST MEDICAL HISTORY: History of recurrent ovarian cancer, atrial fibrillation, chronically on Coumadin, history of malignant pleural effusions. PAST SURGICAL HISTORY: Debulking surgery of the ovary in 2017. FAMILY HISTORY: Was reviewed and is noncontributory to this admission. SOCIAL HISTORY: She lives with her . She does not smoke cigarettes. No illicit drug use. PHYSICAL EXAMINATION: VITAL SIGNS: Blood pressure is 101/57, pulse is in the 90s, temperature is 98.7, respiratory rate is 14, O2 saturation is 100% on 3 liters of nasal cannula. GENERAL: Acutely ill-appearing, female in no apparent distress. HEENT: Pupils are equal, round, reactive to light. EOMI. No thrush, no lesions. NECK: Supple. No JVD. No bruits. No lymphadenopathy. CHEST: Decreased breath sounds in left lower lobe, all lung magana are clear to auscultation. CARDIAC: S1, S2, tachycardic in the 90s. ABDOMEN: Soft, nontender, nondistended. Bowel sounds are decreased. EXTREMITIES: Without edema, erythema or cyanosis. SKIN: Without any petechia, lesions or bruises. NEUROLOGIC: No focal deficits. PSYCHIATRIC: Mood and affect is appropriate. LABORATORY DATA: WBC 8.1, hemoglobin 9.4, platelet count 592. Serum chemistry shows sodium 141, potassium 4.2, chloride 106, CO2 28.5, anion gap 7, BUN 17, creatinine 0.53, GFR is 112, lactic acid 1.6, calcium 7.8, phosphorus 4.5. Ammonia is 41. Random cortisol is 21.5. PT is 11.4, INR 1.1, PTT 28.8. IMAGING: Was reviewed in the EMR and is discussed in the HPI above. ASSESSMENT AND PLAN: This is a 76-year-old female who has a diagnosis of recurrent ovarian carcinoma. She was originally diagnosed as stage IIIB and underwent neoadjuvant chemotherapy followed by debulking surgery and had additional adjuvant chemotherapy. She then had recurrent disease in late 2017 and has been receiving [place]-based therapy. She was brought to the emergency room with altered mental status and acute respiratory failure. 1. Acute respiratory failure, possibly due to underlying pneumonia versus secondary to medications. She was given Ativan prior to the episode of respiratory distress. Her imaging does not show any pulmonary embolism, however, there is patchy consolidation of the left lower lobe. There were some focal patchy density in the superior segment of the right lobe, with the possibility of nodular infiltrates. It is unclear whether this is malignancy or an infectious etiology. We will need to compare imaging with previous imaging. We will also ask Pulmonology to see this patient for possible bronchoscopy. The patient and her family are having a palliative care meeting tomorrow to discuss goals of care. If they decide not to pursue aggressive intervention, then bronchoscopy would not be needed. 2. Encephalopathy due to hypoxic respiratory failure. She also has increased ammonia levels. 3. Recurrent ovarian cancer, currently being treated with systemic k[place] therapy. 4. Anemia, likely due to systemic chemotherapy. Obtain anemia studies. Thank you for allowing me to participate in the care of this patient. The patient will followup with Dr. Davalos outpatient. The family is currently planning to have a meeting with palliative care tomorrow to discuss further goals of care. MD MONIKA Daniels/SEB , 11:44 PM , 12:21 AM
--- NOTE | 2017-07-10 08:43 | PD.CONS ---
Consult Service Palliative Care Consult Requested By Dr. Acosta Primary Care Physician No Primary Care Physician Reason for Consultation a. To assist with evaluation and management of symptoms including:dyspnea b. To assist medical decision maker(s) with: better understanding of current medical conditions; weighing benefits/burdens of medical treatment options; making medical treatment decisions. HPI History of Present Illness Patient is a 76-year-old with a past medical history of stage IIIb ovarian cancer. Patient was in her infusion clinic when she was found to be acutely altered on 07/08/2017. Patient had received 2 mg of Ativan prior to therapy. Because of altered mental status patient was brought to the emergency department and was in respiratory distress. She did come in with paperwork saying that she is a DNR, but emergency physician spoke with medical decision maker and said under this circumstance patient would want to be intubated. Patient was intubated and was transferred to the ICU. Central line was placed . her labs for today: * Pulses 102, blood pressure is 102/68, pulse ox 100% on ventilator * WBC 6.6, hemoglobin 10.4, hematocrit 33.3, platelets 606 * Sodium is 139, potassium 3.8, chloride is 1 3, bicarb is 30.2, BUN is 18, creatinine 0.67 * AST is 40, ALT 36, alk phos is 344, troponin I 0.03 * Albumin level is 1.8 * Chest x-ray shows persistent small left pleural effusion and associated airspace disease. There is patchy airspace disease in the right midlung zone which appear less nodular than earlier exam. * Head CT shows central cerebral atrophy. No acute infarct, acute hemorrhage, midline shift, or extra-axial fluid collection. * Another chest x-ray was repeated on the same day and shows small left pleural effusion with associated atelectasis. Suspected 15 mm mid lung nodule. * CTA of the chest did not show any evidence of pulmonary embolism. He confirms patchy consolidation within the left lower lobe consistent with probable pneumonia. Her more focal patchy densities of the superior segment of the right lower lobe raising the possibility of nodular infiltrates. Underlying mass lesion cannot be ruled out with certainty on the basis of this examination. 07/08/2017-patient mentation has improved, more awake and follows commands for applied researcher. Blood pressure is noted to be low, running at 99/48. 07/09/2017 Patient extubated, but developed shortness of breath again and was on BiPAP. Palliative care was consulted to review goals of care. 07/10/2017. Blood pressure at 3 AM was 96/47. Pulse ox at 98%, respiratory rate is 17. Blood gas indicate respiratory acidosis. On my visit, pt has refused bipap and on nasal canula. She denies she is dyspneic this morning. Pt is more clear and recalls conversation with applied researcher this morning. I had 2 meetings, one with the pt's children, then one with the patient and children. Course of hospitalization, reviewed, questions answered on clinical condition. All are amenable to comfort measures and hospice consultation. Function/Cognitive Trajectory She has dyspnea with exertion that family notice has been getting worse. She also been losing wt, fatigued. Chemo gave pt diarrhea. Review of Systems ROS Limitations: Clinical Condition Constitutional: COMPLAINS OF: Fatigue, Weight loss Past Family Social History Coded Allergies: No Known Allergies (Unverified , 07/08/17) Past Medical History Stage IIIb pleural effusion Malignant pleural effusions Past Surgical History debulking surgery in 01/2017 as stated in her infusion clinic records. this cannot be confirmed with the patient due to her clinical condition. Reported Medications per infusion clinic records: Carboplatin Inj (Carboplatin) 10 Mg/Ml Inj 5 IV DIRECTED Doxil (Doxorubicin HCl Liposome) 2 Mg/Ml Inj 30 Mg IV DIRECTED Zofran Odt (Ondansetron Odt) 8 Mg Tab 8 Mg SL Q8H PRN Xarelto (Rivaroxaban) 20 Mg Tab 20 Mg PO DAILY Dexamethasone 4 Mg Tab 4 Mg PO DIRECTED Current Medications Medications (Trade) Dose Ordered Sig/Mario Route Start Time Stop Time Status Last Admin (NS Flush) 2 ml UNSCH PRN IV FLUSH 07/08/17 15:45 (Trandate Inj) 20 mg Q15M PRN IV PUSH 07/08/17 16:30 (Apresoline Inj) 10 mg Q30M PRN IV PUSH 07/08/17 16:30 Potassium Chloride 100 ml @ 50 mls/hr Q2H PRN IV 07/08/17 16:30 Potassium Chloride 100 ml @ 50 mls/hr Q2H PRN IV 07/08/17 16:30 (K-Lyte Cl Eff) 50 meq UNSCH PRN PO 07/08/17 16:30 Potassium Chloride 100 ml @ 25 mls/hr UNSCH PRN IV 07/08/17 16:30 Potassium Chloride 100 ml @ 50 mls/hr Q2H PRN IV 07/08/17 16:30 Magnesium Sulfate 4 gm/Sodium Chloride 100 ml @ 50 mls/hr UNSCH PRN IV 07/08/17 16:30 (Mag-Ox) 800 mg UNSCH PRN PO 07/08/17 16:30 Magnesium Sulfate 2 gm/Sodium Chloride 100 ml @ 50 mls/hr UNSCH PRN IV 07/08/17 16:30 (K-Phos) 2,000 mg Q4H PRN PO 07/08/17 16:30 Sodium Phosphate 30 mmol/Sodium Chloride 250 ml @ 42 mls/hr UNSCH PRN IV 07/08/17 16:30 (K-Phos) 2,000 mg UNSCH PRN PO/TUBE 07/08/17 16:30 Potassium Phosphate 30 mmol/ Sodium Chloride 260 ml @ 42 mls/hr UNSCH PRN IV 07/08/17 16:30 (Peridex 0.12% Liq) 15 ml BID@08,20 MT 07/08/17 20:00 07/09/17 09:26 (D50w (Vial) Inj) 25 ml UNSCH PRN IV PUSH 07/08/17 16:30 (NovoLIN R SUPPLEMENTAL SCALE) 1 Q6HR SQ 07/08/17 18:00 (Duoneb Neb) 1 ampule Q6HR NEB INH 07/08/17 22:00 07/09/17 21:17 (Duoneb Neb) 1 ampule Q2HR NEB PRN INH 07/08/17 16:30 (Zofran Inj) 4 mg Q6H PRN IV PUSH 07/08/17 16:45 Miscellaneous Information 1 Q361D XX 07/08/17 16:45 07/08/17 16:45 (Chlorhexidine 2% Cloth) 3 pack Taper DAILY@04 TOP 07/09/17 04:00 07/05/18 03:59 07/10/17 04:00 (Chlorhexidine 2% Cloth) 3 pack UNSCH PRN TOP 07/08/17 16:45 (Marisol-Colace) 1 tab BID PO 07/08/17 21:00 07/09/17 09:25 (Milk Of Magnesia Liq) 30 ml Q12H PRN PO 07/08/17 16:45 (Senokot) 17.2 mg Q12H PRN PO 07/08/17 16:45 (Dulcolax Supp) 10 mg DAILY PRN RECTAL 07/08/17 16:45 (Xarelto) 20 mg DAILY PO 07/09/17 09:00 07/09/17 09:25 (Decadron) 2 mg BID PO 07/09/17 09:33 07/09/17 19:57 (Lactulose Liq) 30 ml QID PO 07/10/17 09:00 Lactated Ringer's 1,000 ml @ 84 mls/hr [id number] IV 07/10/17 06:15 Family History Family does have hx of cancer. Substance Use Tobacco:no Alcohol:no Prescription med abuse:no Illicits:no Psychosocial History Pt from [place]. has 3 children Kevin, Yari, and Sandie. Pt travels has [facility] [place], but travels in between [place] and [facility]. Spiritual/Cultural Factors Restoration Living Will: Copy in medical record Health Care Surrogate(s): Yaw Sosa ( pt has [employer]) Alternate is Yari Physical Exam Vital Signs Date Time Temp Pulse Resp B/P (MAP) Pulse Ox O2 Delivery O2 Flow Rate FiO2 07/10/17 03:00 106 17 96/47 (63) 98 07/10/17 02:00 108 19 104/57 (73) 97 07/10/17 02:00 108 07/10/17 01:00 106 15 100/51 (67) 98 07/10/17 00:00 106 07/10/17 00:00 98.0 106 15 95/47 (63) 99 07/09/17 23:00 108 14 99/48 (65) 99 07/09/17 22:00 110 07/09/17 22:00 110 119/61 (80) 99 07/09/17 21:44 98 Nasal Cannula 3.00 07/09/17 21:35 98 30 07/09/17 21:00 104 22 93/50 (64) 100 07/09/17 20:03 97 Nasal Cannula 3.00 07/09/17 20:00 98.0 106 21 104/55 (71) 99 07/09/17 20:00 106 07/09/17 19:00 110 22 109/57 (74) 100 07/09/17 18:00 106 07/09/17 18:00 106 21 109/55 (73) 99 07/09/17 17:55 99 Nasal Cannula 3.00 07/09/17 17:41 100 40 07/09/17 17:00 94 16 103/70 (81) 98 07/09/17 16:00 92 07/09/17 16:00 98.7 92 16 97/55 (69) 99 07/09/17 15:00 90 11 96/54 (68) 99 07/09/17 14:00 96 07/09/17 14:00 96 21 101/57 (72) 100 07/09/17 13:33 100 40 07/09/17 13:00 98 20 96/47 (63) 90 07/09/17 12:05 100 Nasal Cannula 3.00 07/09/17 12:00 94 07/09/17 12:00 98.7 94 16 84/45 (58) 100 07/09/17 11:00 92 17 87/45 (59) 100 07/09/17 10:45 90 14 83/44 (57) 99 07/09/17 10:30 94 19 93/45 (61) 99 07/09/17 10:15 96 14 99/52 (68) 100 07/09/17 10:00 96 07/09/17 10:00 96 24 98/49 (65) 96 07/09/17 10:00 96 24 98/49 (65) 96 07/09/17 09:00 96 18 85/44 (58) 98 Exam CONSTITUTIONAL/GENERAL: This is an adequately nourished patient, denies any distress, thin TUBES/LINES/DRAINS:central line, ward. SKIN: No jaundice, rashes, or lesions. Ecchymoses on upper extremities. No wounds seen anteriorly. Skin temperature appropriate. Not diaphoretic. HEAD: Atraumatic. Normocephalic. EYES: Pupils equal and round and reactive. Extraocular motions intact. No scleral icterus. No injection or drainage. Fundi not examined. ENT: Hearing grossly normal. Nose without bleeding or purulent drainage. Throat without visible erythema, exudates, masses, or lesions. NECK: Trachea midline. Supple, nontender. No palpable thyroid enlargement or nodularity. CARDIOVASCULAR: Irregular rhytym. without murmurs, gallops, or rubs. No JVD. Peripheral pulses symmetric. RESPIRATORY/CHEST: unlabored, on nasal canula, refuses bipap. Left lower lung base, has crackles. Decrease breath sounds bilaterally. GASTROINTESTINAL: Abdomen soft, non-tender, nondistended. No hepato-splenomegaly , or palpable masses. No guarding. Bowel sounds present. GENITOURINARY: Without palpable bladder distension. Ward catheter in place. MUSCULOSKELETAL: Extremities without clubbing, cyanosis, or edema. No joint tenderness or effusion noted. No calf tenderness. No mottling or clubbing. LYMPHATICS: No palpable cervical or supraclavicular adenopathy. NEUROLOGICAL: Awake and alert. Motor and sensory grossly within normal limits. Follows commands. Answers questions appropriately. Moves all extremities. PSYCHIATRIC: No obvious anxiety/depression. no apparent hallucinations or other psychotic thought process. Diagnostic Tests Laboratory Laboratory Tests Test 07/08/17 15:32 07/08/17 15:40 07/08/17 17:14 07/08/17 18:00 White Blood Count 6.6 TH/MM3 (4.0-11.0) Red Blood Count 3.31 MIL/MM3 (4.00-5.30) Hemoglobin 10.4 GM/DL (11.6-15.3) Hematocrit 33.3 % (35.0-46.0) Mean Corpuscular Volume 100.8 FL (80.0-100.0) Mean Corpuscular Hemoglobin 31.5 PG (27.0-34.0) Mean Corpuscular Hemoglobin Concent 31.3 % (32.0-36.0) Red Cell Distribution Width 19.3 % (11.6-17.2) Platelet Count 606 TH/MM3 (150-450) Mean Platelet Volume 8.0 FL (7.0-11.0) Neutrophils (%) (Auto) 86.3 % (16.0-70.0) Lymphocytes (%) (Auto) 8.3 % (9.0-44.0) Monocytes (%) (Auto) 1.3 % (0.0-8.0) Eosinophils (%) (Auto) 0.1 % (0.0-4.0) Basophils (%) (Auto) 4.0 % (0.0-2.0) Neutrophils # (Auto) 5.6 TH/MM3 (1.8-7.7) Lymphocytes # (Auto) 0.6 TH/MM3 (1.0-4.8) Monocytes # (Auto) 0.1 TH/MM3 (0-0.9) Eosinophils # (Auto) 0.0 TH/MM3 (0-0.4) Basophils # (Auto) 0.3 TH/MM3 (0-0.2) CBC Comment DIFF FINAL Differential Comment Prothrombin Time 11.4 SEC (9.8-11.6) Prothromb Time International Ratio 1.1 RATIO Activated Partial Thromboplast Time 28.8 SEC (24.3-30.1) Blood Gas Puncture Site RT RADIAL Blood Gas Patient Temperature 98.6 Blood Gas HCO3 38 mmol/L (22-26) Blood Gas Base Excess 5.4 mmol/L (-2-2) Blood Gas Oxygen Saturation 96 % (90-100) Arterial Blood pH 6.92 (7.380-7.420) Arterial Blood Partial Pressure CO2 195 mmHG (38-42) Arterial Blood Partial Pressure O2 359 mmHG (61-120) Arterial Blood Oxygen Content 14.8 Vol % (12.0-20.0) Arterial Blood Carboxyhemoglobin 1.2 % (0-4) Arterial Blood Methemoglobin 1.6 % (0-2) Blood Gas Hemoglobin 10.3 G/DL (12.0-16.0) Oxygen Delivery Device AMBU Blood Gas Inspired Oxygen 100 % Blood Urea Nitrogen 18 MG/DL (7-18) Creatinine 0.67 MG/DL (0.50-1.00) Random Glucose 203 MG/DL (74-106) Total Protein 5.3 GM/DL (6.4-8.2) Albumin 1.8 GM/DL (3.4-5.0) Calcium Level 7.1 MG/DL (8.5-10.1) Alkaline Phosphatase 344 U/L (45-117) Aspartate Amino Transf (AST/SGOT) 40 U/L (15-37) Alanine Aminotransferase (ALT/SGPT) 36 U/L (10-53) Total Bilirubin 0.2 MG/DL (0.2-1.0) Sodium Level 139 MEQ/L (136-145) Potassium Level 3.8 MEQ/L (3.5-5.1) Chloride Level 103 MEQ/L (98-107) Carbon Dioxide Level 30.2 MEQ/L (21.0-32.0) Anion Gap 6 MEQ/L (5-15) Estimat Glomerular Filtration Rate 86 ML/MIN (>89) Lactic Acid Level 1.6 mmol/L (0.4-2.0) Protein Corrected Calcium 8.1 MG/DL (8.5-10.1) Total Creatine Kinase 29 U/L (26-192) Troponin I 0.03 NG/ML (0.02-0.05) Thyroid Stimulating Hormone 3rd Gen 1.000 uIU/ML (0.358-3.740) Salicylates Level LESS THAN 1.7 MG/DL Acetaminophen Level 6.4 MCG/ML (10.0-30.0) Ethyl Alcohol Level LESS THAN 3 MG/DL (0-5) Urine Collection Type CATH Urine Color YELLOW (YELLW/STRAW) Urine Turbidity SL CLOUDY (CLEAR) Urine pH 5.5 (5.0-8.5) Urine Specific [place] GREATER/EQUAL 1.030 Urine Protein 100 mg/dL (NEG-TRACE) Urine Glucose (UA) NEG mg/dL (NEG) Urine Ketones NEG mg/dL (NEG) Urine Occult Blood MOD (NEG) Urine Nitrite NEG (NEG) Urine Bilirubin NEG (NEG) Urine Urobilinogen 0.2 MG/DL (LESS THAN Urine Leukocyte Esterase NEG (NEG) Urine WBC 0-2 /hpf (0-5) Urine Squamous Epithelial Cells 0-2 /hpf (0-5) Urine Bacteria RARE /hpf (NONE) Microscopic Urinalysis Comment CULTURE INDICATED Test 07/08/17 19:07 07/08/17 21:08 07/09/17 04:35 07/09/17 06:15 Blood Gas Puncture Site RT RADIAL RT BRACHIAL Blood Gas Patient Temperature 98.6 37.0 Blood Gas HCO3 28 mmol/L (22-26) 28 mmol/L (22-26) Blood Gas Base Excess 4.4 mmol/L (-2-2) 4.5 mmol/L (-2-2) Blood Gas Oxygen Saturation 98 % (90-100) 97 % (90-100) Arterial Blood pH 7.46 (7.380-7.420) 7.45 (7.380-7.420) Arterial Blood Partial Pressure CO2 41 mmHG (38-42) 42 mmHg (38-42) Arterial Blood Partial Pressure O2 538 mmHG (61-120) 155 mmHg (61-120) Arterial Blood Oxygen Content 14.5 Vol % (12.0-20.0) 12.9 Vol % (12.0-20.0) Arterial Blood Carboxyhemoglobin 0.5 % (0-4) 1.5 % (0-4) Arterial Blood Methemoglobin 0.9 % (0-2) 1.0 % (0-2) Blood Gas Hemoglobin 9.5 G/DL (12.0-16.0) 9.2 G/DL (12.0-16.0) Oxygen Delivery Device VENT VENTILATOR Blood Gas Ventilator Setting AC16/VT500/PEEP+5 AC16/500/PEEP5 Blood Gas Inspired Oxygen 100 % 40 % Nasal Screen MRSA (PCR) MRSA NOT DETECTED (NOT White Blood Count 8.1 TH/MM3 (4.0-11.0) Red Blood Count 2.95 MIL/MM3 (4.00-5.30) Hemoglobin 9.4 GM/DL (11.6-15.3) Hematocrit 29.0 % (35.0-46.0) Mean Corpuscular Volume 98.3 FL (80.0-100.0) Mean Corpuscular Hemoglobin 31.8 PG (27.0-34.0) Mean Corpuscular Hemoglobin Concent 32.3 % (32.0-36.0) Red Cell Distribution Width 19.0 % (11.6-17.2) Platelet Count 592 TH/MM3 (150-450) Mean Platelet Volume 7.1 FL (7.0-11.0) Blood Urea Nitrogen 17 MG/DL (7-18) Creatinine 0.53 MG/DL (0.50-1.00) Random Glucose 77 MG/DL (74-106) Calcium Level 7.8 MG/DL (8.5-10.1) Sodium Level 141 MEQ/L (136-145) Potassium Level 4.2 MEQ/L (3.5-5.1) Chloride Level 106 MEQ/L (98-107) Carbon Dioxide Level 28.5 MEQ/L (21.0-32.0) Anion Gap 7 MEQ/L (5-15) Estimat Glomerular Filtration Rate 112 ML/MIN (>89) Test 07/09/17 13:00 07/09/17 15:14 07/10/17 04:25 07/10/17 06:29 Blood Gas Puncture Site LT RADIAL RT RADIAL Blood Gas Patient Temperature 37.0 37.0 Blood Gas HCO3 31 mmol/L (22-26) 31 mmol/L (22-26) Blood Gas Base Excess -0.8 mmol/L (-2-2) 3.2 mmol/L (-2-2) Blood Gas Oxygen Saturation 96 % (90-100) 96 % (90-100) Arterial Blood pH 6.94 (7.380-7.420) 7.19 (7.380-7.420) Arterial Blood Partial Pressure CO2 151 mmHg (38-42) 84 mmHg (38-42) Arterial Blood Partial Pressure O2 167 mmHg (61-120) 140 mmHg (61-120) Arterial Blood Oxygen Content 13.6 Vol % (12.0-20.0) 11.5 Vol % (12.0-20.0) Arterial Blood Carboxyhemoglobin 0.8 % (0-4) 1.5 % (0-4) Arterial Blood Methemoglobin 1.6 % (0-2) 1.5 % (0-2) Blood Gas Hemoglobin 9.8 G/DL (12.0-16.0) 8.3 G/DL (12.0-16.0) Oxygen Delivery Device NRB NASAL CANNULA Blood Gas Inspired Oxygen 100 % Phosphorus Level 4.5 MG/DL (2.5-4.9) Ammonia 41 MCMOL/L (11-32) Random Cortisol 21.5 MCG/DL White Blood Count 10.4 TH/MM3 (4.0-11.0) Red Blood Count 2.69 MIL/MM3 (4.00-5.30) Hemoglobin 8.4 GM/DL (11.6-15.3) Hematocrit 26.9 % (35.0-46.0) Mean Corpuscular Volume 100.0 FL (80.0-100.0) Mean Corpuscular Hemoglobin 31.2 PG (27.0-34.0) Mean Corpuscular Hemoglobin Concent 31.2 % (32.0-36.0) Red Cell Distribution Width 19.0 % (11.6-17.2) Platelet Count 515 TH/MM3 (150-450) Mean Platelet Volume 7.9 FL (7.0-11.0) Blood Urea Nitrogen 16 MG/DL (7-18) Creatinine 0.79 MG/DL (0.50-1.00) Random Glucose 87 MG/DL (74-106) Calcium Level 7.9 MG/DL (8.5-10.1) Sodium Level 143 MEQ/L (136-145) Potassium Level 4.7 MEQ/L (3.5-5.1) Chloride Level 108 MEQ/L (98-107) Carbon Dioxide Level 30.4 MEQ/L (21.0-32.0) Anion Gap 5 MEQ/L (5-15) Estimat Glomerular Filtration Rate 71 ML/MIN (>89) Blood Gas Liter Flow 3 L/M Result Diagram: 07/10/175 07/10/17 0425 Microbiology Microbiology Date/Time Source Procedure Growth Status 07/08/17 17:14 Blood Peripheral Aerobic Blood Culture - Preliminary NO GROWTH IN 1 DAY Resulted 07/08/17 17:14 Blood Peripheral Anaerobic Blood Culture - Preliminary NO GROWTH IN 1 DAY Resulted 07/08/17 17:06 Blood Peripheral Aerobic Blood Culture - Preliminary NO GROWTH IN 1 DAY Resulted 07/08/17 17:06 Blood Peripheral Anaerobic Blood Culture - Preliminary NO GROWTH IN 1 DAY Resulted 07/09/17 08:02 Nasal Washing Influenza Types A,B Antigen (RONAL) - Final NEGATIVE FOR FLU A AND B ANTIGEN.... Complete 07/09/17 02:10 Sputum Endotracheal Gram Stain - Final Resulted 07/09/17 02:10 Sputum Endotracheal Sputum Culture Pending Resulted 07/08/17 18:00 Urine Catheterized Urine Urine Culture - Preliminary NO GROWTH IN 24 HOURS. Resulted Imaging Last Impressions Chest X-Ray 07/08/17 1608 Signed Impressions: Service Date/Time: Saturday, July 08, 2017 16:07 - CONCLUSION: 1. Endotracheal tube in appropriate position with tip measuring 5.3 cm from the mook. 2. Stable small left pleural effusion with associated atelectasis. 3. Suspected 15 mm pulmonary nodule in the right midlung zone. Chance Renner MD CT Angiography 07/08/17 3622 Signed Impressions: Service Date/Time: Saturday, July 08, 2017 16:35 - CONCLUSION: 1. No evidence of pulmonary embolism. 2. Patchy consolidation within left lower lobe consistent with probable pneumonia. Clinical correlation is recommended. 3. Small left pleural effusion. 4. More focal patchy densities within the superior segment of the right lower lobe raising the possibility of nodular infiltrates. Underlying mass lesion cannot be ruled out with certainty on the basis of this examination. 5. Bibasilar bronchiectasis which is worse on the left than the right. 6. Diffuse fluid-filled dilated esophagus suggesting the possibility of achalasia or achalasia-like process. Carlos Ruiz MD Head CT 07/08/17 1533 Signed Impressions: Service Date/Time: Saturday, July 08, 2017 16:30 - CONCLUSION: 1. Central cerebral atrophy. 2. No acute infarct, acute hemorrhage, midline shift or extra-axial fluid collections. Carlos Ruiz MD Patient/Family Conference Present at Family Conference: pt's 3 children. Family Conference Time (mins): 70 (35 with pt's 3 min with pt and children.) Family Conference Location: Bedside, Consult Room Issues Discussed: * Palliative care role, purpose, approach * Additional medical, psychosocial, and spiritual history * Patients general health, functional status, and cognitive changes in the months leading up to the current hospitalization * Patient/family understanding of the current medical problems * Patient/family understanding of prognosis * Patients goals of care as best understood from advance directives and/or conversations and/or values * Current medical treatment options and benefits/burdens of those options * Likely scenarios comparing ongoing aggressive care with a transition to comfort measures only * Questions answered to the best of my ability * Palliative care contact information provided Assessment and Plan Disease Oriented Problem List: (1) Ovarian cancer (2) Respiratory failure Comment: There is pleural effusion. probable pneumonia. Nodular infiltrates/ mass lesion cannot be ruled out. (3) Encephalopathy (4) A-fib (5) Protein malnutrition Comment: failure to Thrive, likely from cancer burden. Symptom Scale: Pertinent Non-Medical Issues Psychosocial: Spiritual: Legal: Ethical issues impacting care: Important Contacts Sandie Jamison [phone] (daughter) Yari (daughter) Prognosis Pt with ovarian cancer, functional status poor, has respiratory insufficiency. She does not want bipap or further aggressive measures. Hospice approriate. Her condition is end stage. Code Status: No Code Plan ==code= DNR == capacity- capacity has fluctuated, but on my visit, today pt display understanding of her clinical condition. She can recall conversation, with applied researcher this morning. == symptom: dyspnea;- respiratory acidosis secondary to pleura effusion/ possible pneumonia. There is pulmonary nodule. == Goals of care- met with family and pt. reviewed hospitalization. Reviewed prognosis. Pt does not want bipap for respiratory insufficiency. She wants to transition to comfort measures only, with hospice at home. Hospice consult will be placed. == Palliative Care will continue to follow as pt's clinical condition evolves. Thank you for the opportunity to participate in the care of Ms. Sosa. Collaborating MD Comments To help prompt me to consider important information that might be impacting today's encounter and assessment, information from prior notes written by myself or my colleagues may have been "brought forward" into today's note. My signature on this note, however, is an attestation that I personally performed the exam, history, and/or decision-making noted today, and, unless otherwise indicated, the interactions with patient, family, and staff as well as the review of records all occurred today. I also attest that the listed assessment and stated plan reflect my best clinical judgment today based on the combination of historical information, prior notes, and today's exam/ interactions. When time spent is documented, it refers only to time spent today by the signer, or if indicated, combined time spent today by collaborating physician/nurse practitioner. Attestation To help prompt me to consider important information that might be impacting today's encounter and assessment, information from prior notes written by myself or my colleagues may have been "brought forward" into today's note. My signature on this note, however, is an attestation that I personally performed the exam, history, and/or decision-making noted today, and, unless otherwise indicated, the interactions with patient, family, and staff as well as the review of records all occurred today. I also attest that the listed assessment and stated plan reflect my best clinical judgment today based on the combination of historical information, prior notes, and today's exam/ interactions. When time spent is documented, it refers only to time spent today by the signer, or if indicated, combined time spent today by collaborating physician/nurse practitioner. Sean Mackay MD Jul 10, 2017 08:43
[2017-07-10] MEDS: DOCUSATE SODIUM 50 MG/SENNA 8.6 MG TAB PO SCH (09:00)
[2017-07-10] MEDS: LACTULOSE SYRUP 20 GM/30 ML CUP PO SCH ×2 (09:00→13:00)
[2017-07-10] MEDS: RIVAROXABAN 20 MG TAB PO SCH (10:06)
[2017-07-10] MEDS: DEXAMETHASONE 4 MG TAB PO SCH (10:06)
--- NOTE | 2017-07-10 11:27 | HHI.CCPN ---
Subjective Remarks/Hospital Course Hospital Course: This is a 76yF with a reported history of stage IIIB ovarian cancer who was at her infusion clinic receiving [place]-based chemotherapy when she was found to be acutely altered. per the infusion clinic records, she received 2mg ativan iv prior to therapy. She was brought to the emergency department and was in respiratory distress and emergently intubated. her initial abg demonstrated severe hypercapneic respiratory failure with a pH 6.97, pco2 195. She did come with paperwork suggesting she was a DNR for chest compressions. per the ED physician, he talked with medical decisionmaker and the patient would want intubation. No additional information is available from the patient due to her mental status. ROS unobtainable. Subjective: 07/09: improved. blood pressure low despite 2L ivf resuscitation. more awake, following commands. ROS negative. denies pain. 07/10: pco2 remains in the 80s. patient is more awake, but now refusing bipap. wants to pursue hospice. did ask about lactulose for mildly elevated ammonia, as this may worsen somnolence and respiratory depression, but patient does want to try this. palliative involved. Objective Vital Signs Date Time Temp Pulse Resp B/P (MAP) Pulse Ox O2 Delivery O2 Flow Rate FiO2 07/10/17 10:31 100 20 99/56 (70) 95 07/10/17 08:00 98.2 07/09/17 21:44 Nasal Cannula 3.00 07/09/17 21:35 30 Intake and Output 07/10/17 07/10/17 07/11/17 08:00 16:00 00:00 Output Total 650 ml Balance -650 ml Result Diagram: 07/10/17 0425 07/10/17 0425 Other Results Microbiology Date/Time Source Procedure Growth Status 07/09/17 08:02 Nasal Washing Influenza Types A,B Antigen (RONAL) - Final NEGATIVE FOR FLU A AND B ANTIGEN.... Complete 07/08/17 18:00 Urine Catheterized Urine Urine Culture - Final NO GROWTH IN 48 HOURS. Complete Laboratory Tests Test 07/09/17 13:00 07/10/17 06:29 Blood Gas Puncture Site LT RADIAL RT RADIAL Blood Gas Patient Temperature 37.0 37.0 Blood Gas HCO3 31 mmol/L (22-26) 31 mmol/L (22-26) Blood Gas Base Excess -0.8 mmol/L (-2-2) 3.2 mmol/L (-2-2) Blood Gas Oxygen Saturation 96 % (90-100) 96 % (90-100) Arterial Blood pH 6.94 (7.380-7.420) 7.19 (7.380-7.420) Arterial Blood Partial Pressure CO2 151 mmHg (38-42) 84 mmHg (38-42) Arterial Blood Partial Pressure O2 167 mmHg (61-120) 140 mmHg (61-120) Arterial Blood Oxygen Content 13.6 Vol % (12.0-20.0) 11.5 Vol % (12.0-20.0) Arterial Blood Carboxyhemoglobin 0.8 % (0-4) 1.5 % (0-4) Arterial Blood Methemoglobin 1.6 % (0-2) 1.5 % (0-2) Blood Gas Hemoglobin 9.8 G/DL (12.0-16.0) 8.3 G/DL (12.0-16.0) Oxygen Delivery Device NRB NASAL CANNULA Blood Gas Inspired Oxygen 100 % Blood Gas Liter Flow 3 L/M Imaging Last Impressions Chest X-Ray 07/08/17 1533 Signed Impressions: Service Date/Time: Saturday, July 08, 2017 15:55 - CONCLUSION: 1. Small left pleural effusion with associated atelectasis and/or consolidation at the left lung base. 2. Suspected 15 mm mid lung nodule. These findings will be further evaluated on the currently ordered chest CT. Chance Renner MD Objective Remarks gen: elderly frail female, lying in bed, awake this morning. heent: perrl. mucous membranes moist. normocephalic. atraumatic neck: no jvd. trachea midline. chest: intubated. prvc. equal chest rise. cv: tachycardic rate, irregularly irregular rhythm. afib by tele. abd: soft, nontender, nondistended. no guarding. extr: distal pulses 2+. warm, well perfused. neuro: RASS 0. follows commands. moves all extremities. no focal deficits. A/P Assessment and Plan Assessment: 76yF with history of ovarian cancer with acute hypercarbic and hypoxic respiratory failure. 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 unlikely to recover fully from this illness and will continue to get worse with chemo since this is only post-chemo day 2. agree with hospice discussions. neuro: Acute metabolic encephalopathy- resolving. - likely secondary to co2 narcosis - frequent neuro checks - propofol, fentanyl for goal RASS -2 - sedation vacation - avoid long-acting sedatives. Resp: Acute hypercarbic and hypoxic respiratory failure- persistent - BiPAP if patient wishes - pulmonary toilet CV: Atrial fibrillation - continue home xarelto - given borderline hypotension, will not rate control at this time. Renal: - d/c ward. - strict i/o's FEN/GI: Acute protein calorie malnutrition- severe - ICU electrolyte protocol - regular diet as tolerated. - daily bmp - ns @ 84cc/hr Heme/ID: Stage IIIB ovarian cancer actively receiving chemotherapy - consult oncology - hold off on empiric abx given lack of infectious history - daily cbc - coag negative staph 1/4 bottles likely contaminant. will not treat. Endo: - ssi Prophylaxis: - SCDs - pepcid - home xarelto Lines: - 07/08 CVL by ED: d/c today. - ward: d/c today. Dispo: remain in ICU. agree with hospice consultation. CODE STATUS: DNR. Congruent with her written wishes, we will keep her DNR.. Jj Acosta MD Jul 10, 2017 11:26
--- NOTE | 2017-07-10 13:06 | HHI.DS ---
Discharge Summary Admission Date Jul 08, 2017 at 17:14 Discharge Date: Jul 10, 2017 Admitting Diagnosis Brief History This is a 76yF with a reported history of stage IIIB ovarian cancer who was at her infusion clinic receiving absentee-[place]-based chemotherapy when she was found to be acutely altered. per the infusion clinic records, she received 2mg ativan iv prior to therapy. She was brought to the emergency department and was in respiratory distress and emergently intubated. her initial abg demonstrated severe hypercapneic respiratory failure with a pH 6.97, pco2 195. She did come with paperwork suggesting she was a DNR for chest compressions. per the ED physician, he talked with medical decisionmaker and the patient would want intubation. No additional information is available from the patient due to her mental status. ROS unobtainable. CBC/BMP: 07/10/17 0425 07/10/17 0425 Significant Findings Laboratory Tests Test 07/08/17 15:32 07/08/17 15:40 07/08/17 17:14 07/08/17 18:00 Red Blood Count 3.31 MIL/MM3 (4.00-5.30) Hemoglobin 10.4 GM/DL (11.6-15.3) Hematocrit 33.3 % (35.0-46.0) Mean Corpuscular Volume 100.8 FL (80.0-100.0) Mean Corpuscular Hemoglobin Concent 31.3 % (32.0-36.0) Red Cell Distribution Width 19.3 % (11.6-17.2) Platelet Count 606 TH/MM3 (150-450) Neutrophils (%) (Auto) 86.3 % (16.0-70.0) Lymphocytes (%) (Auto) 8.3 % (9.0-44.0) Basophils (%) (Auto) 4.0 % (0.0-2.0) Lymphocytes # (Auto) 0.6 TH/MM3 (1.0-4.8) Basophils # (Auto) 0.3 TH/MM3 (0-0.2) Blood Gas HCO3 38 mmol/L (22-26) Blood Gas Base Excess 5.4 mmol/L (-2-2) Arterial Blood pH 6.92 (7.380-7.420) Arterial Blood Partial Pressure CO2 195 mmHG (38-42) Arterial Blood Partial Pressure O2 359 mmHG (61-120) Blood Gas Hemoglobin 10.3 G/DL (12.0-16.0) Random Glucose 203 MG/DL (74-106) Total Protein 5.3 GM/DL (6.4-8.2) Albumin 1.8 GM/DL (3.4-5.0) Calcium Level 7.1 MG/DL (8.5-10.1) Alkaline Phosphatase 344 U/L (45-117) Aspartate Amino Transf (AST/SGOT) 40 U/L (15-37) Estimat Glomerular Filtration Rate 86 ML/MIN (>89) Protein Corrected Calcium 8.1 MG/DL (8.5-10.1) Salicylates Level LESS THAN 1.7 MG/DL Acetaminophen Level 6.4 MCG/ML (10.0-30.0) Urine Protein 100 mg/dL (NEG-TRACE) Urine Occult Blood MOD (NEG) Urine Bacteria RARE /hpf (NONE) Test 07/08/17 19:07 07/08/17 21:08 07/09/17 04:35 07/09/17 06:15 Blood Gas HCO3 28 mmol/L (22-26) 28 mmol/L (22-26) Blood Gas Base Excess 4.4 mmol/L (-2-2) 4.5 mmol/L (-2-2) Arterial Blood pH 7.46 (7.380-7.420) 7.45 (7.380-7.420) Arterial Blood Partial Pressure O2 538 mmHG (61-120) 155 mmHg (61-120) Blood Gas Hemoglobin 9.5 G/DL (12.0-16.0) 9.2 G/DL (12.0-16.0) Red Blood Count 2.95 MIL/MM3 (4.00-5.30) Hemoglobin 9.4 GM/DL (11.6-15.3) Hematocrit 29.0 % (35.0-46.0) Red Cell Distribution Width 19.0 % (11.6-17.2) Platelet Count 592 TH/MM3 (150-450) Calcium Level 7.8 MG/DL (8.5-10.1) Test 07/09/17 13:00 07/09/17 15:14 07/10/17 04:25 07/10/17 06:29 Blood Gas HCO3 31 mmol/L (22-26) 31 mmol/L (22-26) Arterial Blood pH 6.94 (7.380-7.420) 7.19 (7.380-7.420) Arterial Blood Partial Pressure CO2 151 mmHg (38-42) 84 mmHg (38-42) Arterial Blood Partial Pressure O2 167 mmHg (61-120) 140 mmHg (61-120) Blood Gas Hemoglobin 9.8 G/DL (12.0-16.0) 8.3 G/DL (12.0-16.0) Ammonia 41 MCMOL/L (11-32) Red Blood Count 2.69 MIL/MM3 (4.00-5.30) Hemoglobin 8.4 GM/DL (11.6-15.3) Hematocrit 26.9 % (35.0-46.0) Mean Corpuscular Hemoglobin Concent 31.2 % (32.0-36.0) Red Cell Distribution Width 19.0 % (11.6-17.2) Platelet Count 515 TH/MM3 (150-450) Calcium Level 7.9 MG/DL (8.5-10.1) Chloride Level 108 MEQ/L (98-107) Estimat Glomerular Filtration Rate 71 ML/MIN (>89) Blood Gas Base Excess 3.2 mmol/L (-2-2) Arterial Blood Oxygen Content 11.5 Vol % (12.0-20.0) Hospital Course Hospital Course: This is a 76yF with a reported history of stage IIIB ovarian cancer who was at her infusion clinic receiving absentee-[place]-based chemotherapy when she was found to be acutely altered. per the infusion clinic records, she received 2mg ativan iv prior to therapy. She was brought to the emergency department and was in respiratory distress and emergently intubated. her initial abg demonstrated severe hypercapneic respiratory failure with a pH 6.97, pco2 195. She did come with paperwork suggesting she was a DNR for chest compressions. per the ED physician, he talked with medical decisionmaker and the patient would want intubation. No additional information is available from the patient due to her mental status. ROS unobtainable. 07/09: improved. blood pressure low despite 2L ivf resuscitation. more awake, following commands. ROS negative. denies pain. 07/10: pco2 remains in the 80s. patient is more awake, but now refusing bipap. wants to pursue hospice. did ask about lactulose for mildly elevated ammonia, as this may worsen somnolence and respiratory depression, but patient does want to try this. palliative involved. Discharged home with home hospice. Pt Condition on Discharge: Stable Discharge Disposition: Hospice/ Home Discharge Instructions DIET: Follow Instructions for: As Tolerated, No Restrictions Activities you can perform: Regular-No Restrictions Jj Acosta MD Jul 10, 2017 13:06
[2017-07-10] MEDS ORDERED: guaiFENesin SOLUTION 200 MG/10 ML CUP PO PRN (15:00)
== END 2017-07-10 18:06 | disposition hospice, home (50) | DRG 208 ==
LOC: PHED 15:31 → UNDOADMIN 17:13 → PHEDA 17:13 → PHICU 20:53
PROVIDERS: ADMIT Internal Medicine Critical Care Medicine; ATTEND Internal Medicine Critical Care Medicine
PROC: 5A1935Z Respiratory Ventilation, Less than 24 Consecutive Hours (ICD-10-PCS; principal; 2017-07-08)
PROC: 0DH67UZ Insertion of Feeding Device into Stomach, Via Natural or Artificial Opening (ICD-10-PCS; 2017-07-08)
PROC: 02HV33Z Insertion of Infusion Device into Superior Vena Cava, Percutaneous Approach (ICD-10-PCS; 2017-07-08)
PROC: 0BH17EZ Insertion of Endotracheal Airway into Trachea, Via Natural or Artificial Opening (ICD-10-PCS; 2017-07-08)
DX: J96.01 Acute respiratory failure with hypoxia (principal); E43 Unspecified severe protein-calorie malnutrition; G93.41 Metabolic encephalopathy; J18.9 Pneumonia, unspecified organism; J91.0 Malignant pleural effusion; E87.2 Acidosis; C56.9 Malignant neoplasm of unspecified ovary; C78.7 Secondary malignant neoplasm of liver and intrahepatic bile duct; J98.11 Atelectasis; J96.02 Acute respiratory failure with hypercapnia; J96.92 Respiratory failure, unspecified with hypercapnia; I95.9 Hypotension, unspecified; I48.91 Unspecified atrial fibrillation; I10 Essential (primary) hypertension; F41.9 Anxiety disorder, unspecified; D64.81 Anemia due to antineoplastic chemotherapy; R91.1 Solitary pulmonary nodule; R62.7 Adult failure to thrive; E78.00 Pure hypercholesterolemia, unspecified; K21.9 Gastro-esophageal reflux disease without esophagitis; K22.8 Other specified diseases of esophagus; R40.2432 Glasgow coma scale score 3-8, at arrival to emergency department; Z66 Do not resuscitate; Z51.5 Encounter for palliative care; Z86.711 Personal history of pulmonary embolism; Z79.01 Long term (current) use of anticoagulants; Z85.43 Personal history of malignant neoplasm of ovary; Z68.22 Body mass index [BMI] 22.0-22.9, adult
CPT/HCPCS: 31500; 36556; 36600; 43752; 51702; 70450; 71045; 71275; 80048; 80053; 80307; 81001; 82140; 82533; 82550; 82805; 82948; 83605; 84100; 84443; 84484; 85025; 85027; 85610; 85730; 87040; 87070; 87086; 87205; 87641; 87804; 93005; 94002; 94003; 94150; 94640; 94664; 94667; 94668; 96374; J0692; J2250; J3010; J3370; J7030; J7050; J8540; P9045; Q9967